=== PATIENT | male | born 1940 | race Caucasian/White ===

== ENCOUNTER 2022-11-12 11:42 | Outpatient (CLI) | payer MEDICARE, BC, SELFPAY | END 2022-11-12 11:43 | disposition home or self-care (01) | PROVIDERS: PCP Family Medicine; Visit Provider Nurse Practitioner Family | DX: R68.89 Other general symptoms and signs (principal); R05.9 Cough, unspecified | CPT/HCPCS: 83880; 84484; 85379 ==

== ENCOUNTER 2023-01-28 22:01 | Emergency (ER) | payer MEDICARE, BC, SELFPAY ==
[2023-01-28] VITALS (11 sets, daily range): BP systolic 115–157; BP diastolic 48–62; PULSE 42–48; RESP 22; TEMP 37; O2SAT 96–97; BMI 42.8
--- NOTE | 2023-01-28 22:33 | CRLHL7_ITS ---
For Patients: As a result of the Cures Act, medical imaging exams and procedure reports are released immediately into your electronic medical record. You may view this report before your referring provider. If you have questions, please contact your health care provider. INDICATION: Shortness of breath. COMPARISON: Chest single view from 11/12/2022 FINDINGS: PA and lateral views of the chest were obtained. The lungs remain clear. No focal or diffuse infiltrates are present. The heart remains normal in size. The mediastinum is normal in appearance. The osseous structures are normal in appearance for the patient`s age. IMPRESSION: Normal chest two views. Dictated by Stalney Rodríguez MD @ 01/29/2023 1:22:49 AM (Electronically Signed)
--- NOTE | 2023-01-28 22:41 | ED_ITS ---
HPI - General Adult General Date Seen: 01/28/23 Chief complaint: Arrhythmia/Palpitations Stated complaint: low heart rate Time Seen by Provider: 01/28/23 22:24 Source: patient Mode of arrival: ambulatory Limitations: no limitations History of Present Illness HPI narrative: Patient is a an 82-year-old male with history of hypertension, CHF, diabetes presenting to the emergency department for a low heart rate. He states over the past week his chronic fatigue and intermittent lightheadedness and dizziness seemed to have been worse. Patient states he never felt like he was going to pass out or fall over but was saved be slightly dizzy. He the nose with past week he is also having shortness of breath. He states usually he is able to walk around it never gets short of breath but now he walks but 100 or so feet and becomes short of breath. His eyes checked his blood pressure today and was blood pressure was normal he knows his heart rate was in the 40s. He is usually in the 80s. He has never had this issue before. Denies headache, chest pain, fevers, chills, abdominal pain, weakness, numbness, diarrhea, constipation. Related Data Home Medications Medication Instructions Recorded Confirmed atorvastatin 40 mg tablet 40 mg PO DAILY 11/12/22 01/28/23 furosemide 40 mg tablet 40 mg PO 3XD 11/12/22 01/28/23 glipizide 5 mg tablet, extended 5 mg PO BID 11/12/22 01/28/23 release 24 hr lisinopril 20 mg tablet 20 mg PO DAILY 11/12/22 01/28/23 tamsulosin 0.4 mg capsule 0.8 mg PO DAILY 11/12/22 01/28/23 ascorbate calcium (vitamin C) 500 500 mg PO DAILY 01/28/23 01/28/23 mg tablet ferrous sulfate 325 mg (65 mg 325 mg PO DAILY 01/28/23 01/28/23 iron) tablet omega 6-mtk-pmk-fish oil 1,000 mg 1 cap PO DAILY 01/28/23 01/28/23 (120 mg-180 mg) capsule (Fish Oil) Previous Rx's Medication Instructions Recorded albuterol sulfate 90 mcg/actuation 2 puff inhalation Q4-6H PRN 11/12/22 aerosol inhaler shortness of breath or wheezing #8.5 grams Allergies Allergy/AdvReac Type Severity Reaction Status Date / Time nifedipine Allergy Unknown Unknown Verified 01/28/23 23:41 Review of Systems Status of ROS: Reports: 10 or more systems reviewed and unremarkable except as noted in History and below 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 ?N18.30 - Chronic kidney disease, stage 3 unspecified (ICD-10) ?D63.1 - Anemia in chronic kidney disease (ICD-10) Prostate cancer ?C61 - Malignant neoplasm of prostate (ICD-10) Neuropathy ?G62.9 - Polyneuropathy, unspecified (ICD-10) Edema ?R60.9 - Edema, unspecified (ICD-10) Diabetes mellitus, without long-term current use of insulin ?E11.9 - Type 2 diabetes mellitus without complications (ICD-10) Bladder outlet obstruction ?N32.0 - Bladder-neck obstruction (ICD-10) Benign neoplasm of colon ?D12.6 - Benign neoplasm of colon, unspecified (ICD-10) Bronchospasm ?J98.01 - Acute bronchospasm (ICD-10) Decreased exercise tolerance ?R68.89 - Other general symptoms and signs (ICD-10) Cough ?R05.9 - Cough, unspecified (ICD-10) Social History Smoking Status: Former smoker Do you use any of these nicotine containing products: None Second hand tobacco smoke exposure: No Non-prescribed substance use: denies use Exam Narrative: Exam Narrative: Const: Well-nourished, Well-developed, in mild distress Eyes: PERRL, no conjunctival injection, and symmetrical lids ENMT: Atraumatic external nose and ears. Moist mucous membranes. Neck: Symmetric, trachea midline, No thyromegaly. CVS: RRR, No murmurs or gallops. Peripheral pulses 2+ and equal in all extremities RESP: Unlabored respiratory effort. Clear to auscultation bilaterally. GI: Nontender/Nondistended, No rebound or guarding. MSK:Extremities w/o deformity, Normal Active ROM Skin: Warm, Dry. No rashes or lesions. Neuro: Normal Muscle tone, No focal neurological deficits. Psych: Awake, Alert, & Oriented x3. Appropriate mood and affect. Const: Vital Signs, click to edit/add: Vital Signs - 24 hr 01/28/23 22:15 01/28/23 23:04 01/28/23 23:05 Temperature 98.6 F Pulse Rate 43 L 43 L Pulse Rate [Right Pulse Oximeter] 48 L Pulse Rate [orthos tatic lying Right Pulse Oximeter] Pulse Rate [orthos tatic sitting Righ t Pulse Oximeter] Pulse Rate [orthos tatic standing Rig ht Pulse Oximeter] Respiratory Rate 22 Blood Pressure 118/48 L Blood Pressure [Le ft Upper Arm] 141/58 H Blood Pressure [or thostatic lying Le ft Arm] Blood Pressure [or thostatic sitting Left Arm] Blood Pressure [or thostatic standing Left Arm] Pulse Oximetry 96 96 97 Oxygen Delivery Me thod Room Air 01/28/23 23:23 01/28/23 23:30 01/28/23 23:31 Temperature Pulse Rate 46 L 42 L Pulse Rate [Right Pulse Oximeter] Pulse Rate [orthos tatic lying Right Pulse Oximeter] 42 L Pulse Rate [orthos tatic sitting Righ t Pulse Oximeter] Pulse Rate [orthos tatic standing Rig ht Pulse Oximeter] Respiratory Rate Blood Pressure Blood Pressure [Le ft Upper Arm] Blood Pressure [or thostatic lying Le ft Arm] 115/56 L Blood Pressure [or thostatic sitting Left Arm] Blood Pressure [or thostatic standing Left Arm] Pulse Oximetry 97 97 Oxygen Delivery Me thod 01/28/23 23:32 01/28/23 23:33 01/28/23 23:34 Temperature Pulse Rate 42 L 45 L Pulse Rate [Right Pulse Oximeter] Pulse Rate [orthos tatic lying Right Pulse Oximeter] Pulse Rate [orthos tatic sitting Righ t Pulse Oximeter] 43 L Pulse Rate [orthos tatic standing Rig ht Pulse Oximeter] Respiratory Rate Blood Pressure 115/56 L 135/58 L Blood Pressure [Le ft Upper Arm] Blood Pressure [or thostatic lying Le ft Arm] Blood Pressure [or thostatic sitting Left Arm] 135/58 L Blood Pressure [or thostatic standing Left Arm] Pulse Oximetry 97 97 Oxygen Delivery Me thod 01/28/23 23:35 01/28/23 23:36 Temperature Pulse Rate 47 L Pulse Rate [Right Pulse Oximeter] Pulse Rate [orthos tatic lying Right Pulse Oximeter] Pulse Rate [orthos tatic sitting Righ t Pulse Oximeter] Pulse Rate [orthos tatic standing Rig ht Pulse Oximeter] 48 L Respiratory Rate Blood Pressure 157/62 H Blood Pressure [Le ft Upper Arm] Blood Pressure [or thostatic lying Le ft Arm] Blood Pressure [or thostatic sitting Left Arm] Blood Pressure [or thostatic standing Left Arm] 157/62 H Pulse Oximetry 97 Oxygen Delivery Me thod Course Vital Signs Vital signs: Initial Vital Signs Temperature 98.6 F 01/28/23 22:15 Temperature Source Temporal Artery Scan 01/28/23 22:15 Pulse Rate 48 L 01/28/23 22:15 Pulse Rhythm Regular 01/28/23 22:15 Respiratory Rate 22 01/28/23 22:15 Blood Pressure 141/58 H 01/28/23 22:15 Blood Pressure Mean 85 01/28/23 22:15 Blood Pressure Position Semi-Fowlers 01/28/23 22:15 Pulse Oximetry 96 01/28/23 22:15 Oxygen Delivery Method Room Air 01/28/23 22:15 Vital Signs Temperature 98.6 F 01/28/23 22:15 Pulse Rate 48 L 01/28/23 22:15 Respiratory Rate 22 01/28/23 22:15 Blood Pressure 141/58 H 01/28/23 22:15 Pulse Oximetry 96 01/28/23 22:15 Oxygen Delivery Method Room Air 01/28/23 22:15 Temperature 98.6 F 01/28/23 22:15 Pulse Rate 47 L 01/28/23 23:36 Respiratory Rate 22 01/28/23 22:15 Blood Pressure 157/62 H 01/28/23 23:36 Pulse Oximetry 97 01/28/23 23:36 Oxygen Delivery Method Room Air 01/28/23 22:15 Medical Decision Making MDM Narrative Medical decision making narrative: Patient is an 82-year-old male presented emergency department for bradycardia and shortness of breath. First noticed the bradycardia today and thus making emergency department. He has had a his shortness of breath for the past week agree states now every he walks more than feet surgical breath previously he could walk around on limited without being short of breath. He has also been having some increased lightheadedness and dizziness but does note is been a chronic issue the just seems mildly worse now. He has chronic lower extremity swelling. CBC, CMP, troponin, EKG, chest x-ray, magnesium, BNP all ordered. We also ordered a D-dimer for concern of a PE. Patient's D-dimer was elevated. Orthostatic blood pressure shoulder rising blood pressure. With elevated D-dimer we will order a PE CTA scan. Patient's EKG showed a slower heart rate but otherwise was not concerning. Cbc and CMP showed no concerning abnormalities. Scratch that appears to be at baseline. COVID/flu/RSV were negative. Troponin was within normal limits. Patient is pending CT results and was signed out to my colleague Dr. Guzmán for final disposition. Lab Data Labs: Lab Results 01/28/23 01/28/23 Range/Units 22:25 23:11 WBC 6.41 (4.50-11.00) K/uL RBC 4.52 (4.30-5.90) m/uL Hgb 13.2 L (13.5-17.5) gm/dL Hct 42.7 (37.0-53.0) % MCV 95 (80-100) fL MCH 29 (26-34) pg MCHC 31 L (32-36) gm/dL RDW Coeff of Blu 13.7 (11.5-15.5) % Plt Count 196 (140-440) K/uL Neut % (Auto) 57.5 (42.0-72.0) % Lymph % (Auto) 25.4 (20-44) % [place] % (Auto) 13.6 H (0.0-11.0) % Eos % (Auto) 2.2 (0.0-7.0) % Baso % (Auto) 0.5 (0.0-3.0) % Neut # (Auto) 3.69 (1.7-7.0) K/uL Lymph # (Auto) 1.63 (0.90-2.90) K/uL [place] # (Auto) 0.90 (0.00-0.90) K/UL Eos # (Auto) 0.14 (0.00-0.50) K/uL Baso # (Auto) 0.03 (0.00-0.30) K/uL Abs Immat Gran (auto) 0.05 (0.00-0.30) K/uL Imm/Tot Granulo (auto) 0.8 % D-Dimer Quant (PE/DVT) 1.05 H (0.00-0.50) ug/ml Sodium 136 (135-149) mmol/L Potassium 3.9 (3.6-5.1) mmol/L Chloride 98 (96-114) mmol/L Carbon Dioxide 27 (20-32) mmol/L BUN 56 H (7-30) mg/dL Creatinine 1.8 H (0.5-1.5) mg/dL Estimated Creat Clear 33.80 Estimated GFR 38 ml/min Glucose 144 H (60-115) mg/dL Calcium 8.6 (8.4-10.6) mg/dL Magnesium 2.7 H (1.5-2.6) mg/dL Total Bilirubin 0.5 (0.1-1.5) mg/dL AST 21 (12-35) U/L ALT 26 (4-50) U/L Alkaline Phosphatase 77 (40-150) U/L Total Protein 6.7 (6.0-8.3) g/dL Albumin 3.9 (3.3-5.0) g/dL SARS-CoV-2 (PCR) Negative SARS-CoV-2 (Negative) Influenza Type A (PCR) Negative PCR FLU A (Negative) Influenza Type B (PCR) Negative PCR FLU B (Negative) RSV (PCR) Negative PCR RSV (Negative) Lab Acknowledgement Test Added POC Troponin I 0.01 (0.01-0.04) ng/ml ECG Data Attestation: I personally reviewed and interpreted this ECG as follows: (EKG shows sinus bradycardia with first-degree AV block at 50 beats per minute, right axis, resting intervals appear normal, no ST or T-wave abnormalities. Appears similar to previous EKG other than the slower heart rate) Prior ECG tracings: available for review (11/13/2022) Discharge Plan Discharge Prescriptions: No Action atorvastatin 40 mg tablet 40 mg PO DAILY furosemide 40 mg tablet 40 mg PO 3XD lisinopril 20 mg tablet 20 mg PO DAILY glipizide 5 mg tablet extended release 24hr 5 mg PO BID tamsulosin 0.4 mg capsule 0.8 mg PO DAILY albuterol sulfate 90 mcg/actuation HFA aerosol inhaler 2 puff inhalation Q4-6H PRN (Reason: shortness of breath or wheezing) Qty: 8.5 0RF omega 0-nlm-hfg-fish oil [Fish Oil] 1,000 mg (120 mg-180 mg) capsule 1 cap PO DAILY ferrous sulfate 325 mg (65 mg iron) tablet 325 mg PO DAILY ascorbate calcium (vitamin C) 500 mg tablet 500 mg PO DAILY Follow Up/Referrals: Clark Tolentino MD [Primary Care Provider] -
[2023-01-28 22:51] LABS: Troponin, Point-of-Care* 0.01 ng/ml (0.01-0.04)
[2023-01-28 22:55] LABS: Basophils Absolute Auto 0.03 K/uL (0.00-0.30); Basophils Percent Auto 0.5 % (0.0-3.0); Eosinophils Absolute Auto 0.14 K/uL (0.00-0.50); Eosinophils Percent Auto 2.2 % (0.0-7.0); Hematocrit 42.7 % (37.0-53.0); Hemoglobin* 13.2 gm/dL (13.5-17.5); Immature Granulocytes Abs Auto 0.05 K/uL (0.00-0.30); Immature Granulocytes Pct Auto 0.8 %; Lymphocytes Absolute Auto 1.63 K/uL (0.90-2.90); Lymphocytes Percent Auto 25.4 % (20-44); Mean Corpuscular HGB Conc 31 gm/dL (32-36); Mean Corpuscular Hemoglobin 29 pg (26-34); Mean Corpuscular Volume 95 fL (80-100); Monocytes Percent Auto 13.6 % (0.0-11.0); Neutrophils Absolute Auto 3.69 K/uL (1.7-7.0); Neutrophils Percent Auto 57.5 % (42.0-72.0); Platelet Count* 196 K/uL (140-440); RDW Coefficient of Variation % 13.7 % (11.5-15.5); Red Blood Count 4.52 m/uL (4.30-5.90); White Blood Count* 6.41 K/uL (4.50-11.00)
[2023-01-28 22:57] LABS: Slide Review Reflex No
[2023-01-28 23:03] LABS: Albumin* 3.9 g/dL (3.3-5.0); Chloride* 98 mmol/L (96-114); Sodium* 136 mmol/L (135-149)
[2023-01-28 23:04] LABS: Potassium* 3.9 mmol/L (3.6-5.1)
[2023-01-28 23:06] LABS: Alanine Aminotransferase* 26 U/L (4-50); Alkaline Phosphatase* 77 U/L (40-150); Aspartate Amino Transferase* 21 U/L (12-35); Bilirubin Total* 0.5 mg/dL (0.1-1.5); Blood Urea Nitrogen* 56 mg/dL (7-30); Carbon Dioxide* 27 mmol/L (20-32); Creatinine* 1.8 mg/dL (0.5-1.5); Estimated Glomerular Filt Rate 38 ml/min; Glucose* 144 mg/dL (60-115); Total Protein* 6.7 g/dL (6.0-8.3)
[2023-01-28 23:07] LABS: Calcium* 8.6 mg/dL (8.4-10.6)
[2023-01-28 23:13] LABS: D Dimer Quantitative* 1.05 ug/ml (0.00-0.50)
--- NOTE | 2023-01-28 23:20 | CRLHL7_ITS ---
For Patients: As a result of the Century Cures Act, medical imaging exams and procedure reports are released immediately into your electronic medical record. You may view this report before your referring provider. If you have questions, please contact your health care provider. INDICATION: Shortness of breath. TECHNIQUE: CT chest PE was acquired with 100 cc Omnipaque 350 IV contrast. Permanently recorded images are archived. COMPARISON: None. FINDINGS: Heart and vasculature: Contrast opacification of the pulmonary arterial tree is adequate. No sign of pulmonary embolism. Heart size is normal. Thoracic aorta and pulmonary artery are normal in caliber. Coronary artery and thoracic aorta atherosclerotic calcification. Heavy mitral annulus calcification. Lungs and pleura: Small band of scarring result cases in the inferior posterior lingula. The lungs are otherwise clear. No suspicious nodule. No pleural effusions or pneumothorax. Lymph nodes/mediastinum: Calcified left hilar and mediastinal lymph nodes. No adenopathy or mass. Chest wall: No masses. Thyroid: Unremarkable. Upper abdomen: Partially imaged left-sided hydronephrosis. Bones: Unremarkable for age. IMPRESSION: No pulmonary embolism. No acute findings within the chest. Partially imaged left-sided hydronephrosis. Recommend CT of the abdomen for further evaluation. Please note that all CT scans at this facility use dose modulation, iterative reconstruction, and/or weight-based dosing when appropriate to reduce radiation dose to as low as reasonably achievable. Dictated by Rajeev Mccarthy MD @ 01/29/2023 1:57:40 AM (Electronically Signed)
[2023-01-28 23:27] LABS: Magnesium* 2.7 mg/dL (1.5-2.6)
[2023-01-28 23:29] LABS: PCR FLU A Negative PCR FLU A (Negative); PCR FLU B Negative PCR FLU B (Negative); PCR RSV Negative PCR RSV (Negative)
[2023-01-28] MEDS: LACTATED RINGERS 1000 ML 1,000 ML IV (23:50)
[2023-01-28 23:51] LABS: SARS PCR* Negative SARS-CoV-2 (Negative)
[2023-01-29] VITALS (44 sets, daily range): BP systolic 101–132; BP diastolic 43–61; PULSE 33–54; RESP 20; TEMP 36.2; O2SAT 93–98
[2023-01-29 04:01] LABS: NT Pro B Type NatriureticPept* 2230 pg/mL
--- NOTE | 2023-01-29 08:18 | ED.NURSE ---
at ; she is wanting to ride in ambulance. [place]. pacer pads placed. was incont of urine and pads changed,
--- NOTE | 2023-01-29 08:35 | ED.NURSE ---
bed placement called back-report was called to Radha at [facility]. dispatch called. will be going to [id number].
== END 2023-01-29 09:00 | disposition short-term general hospital (02) ==
PROVIDERS: Emergency Provider Student in an Organized Health Care Education/Training Program; PCP Family Medicine
DX: I44.1 Atrioventricular block, second degree (principal)
CPT/HCPCS: 36415; 71046; 71260; 80053; 83735; 83880; 84484; 85025; 85379; 87631; 93005; 99283; 99284; 99285; J7120; Q9967

== ENCOUNTER 2023-01-29 08:49 | Outpatient (CLI) | payer MEDICARE, BC, SELFPAY | END 2023-01-29 08:50 | disposition home or self-care (01) | LOC: AMB 01-30 12:58 | PROVIDERS: PCP Family Medicine; Visit Provider Family Medicine | DX: I49.9 Cardiac arrhythmia, unspecified (principal) | CPT/HCPCS: A0425; A0427; A0428 ==

== ENCOUNTER 2024-01-30 14:00 | Outpatient (RCR) | payer MEDICARE, BC, SELFPAY ==
--- NOTE | 2023-07-31 14:17 | URNOTE ---
Prior auth is not required for Degarelix ([id number]). Pt has Medicare. Services are based on medical necessity and follow medicare guidelines.
--- NOTE | 2023-08-02 12:20 | PC.NURSE ---
Diagnosis: Prostate Cancer
[2023-08-03 13:17] VITALS: BP 114/74; PULSE 88; RESP 16; TEMP 36.4; O2SAT 97
[2023-08-31 11:36] VITALS: BP 143/83; PULSE 90; RESP 19; TEMP 36.4; O2SAT 96
[2023-08-31] MEDS: DEGARELIX ACETATE 80 MG INJ SUBCUT (11:57)
--- NOTE | 2023-09-12 10:13 | ONC.NURNOTE ---
Dx: Prostate cancer
--- NOTE | 2023-09-12 10:24 | URNOTE ---
Request received for authorization for Le[facility]rol[facility] Acet[facility] (J9217). Prior authorization is not required as services are based on medical necessity and follow Medicare guidelines.
[2023-09-28 11:25] VITALS: BP 121/69; PULSE 100; RESP 18; TEMP 36.8; O2SAT 92
[2023-09-28] MEDS: LEUPROLIDE ACETATE 7.5 MG (SQ) SYRINGE SUBCUT (11:33)
--- NOTE | 2023-10-26 12:57 | URNOTE ---
Request received for authorization for Leuprolide Acetate (Eligard)monthly (J9217). Prior authorization is not required as services are based on medical necessity and follow Medicare guidelines.
[2023-11-01] MEDS: LEUPROLIDE ACETATE 7.5 MG (SQ) SYRINGE SUBCUT (14:46)
[2023-11-29 13:51] VITALS: BP 101/74; PULSE 90; RESP 18; TEMP 35.9; O2SAT 93
[2023-11-29] MEDS: LEUPROLIDE ACETATE 7.5 MG (SQ) SYRINGE SUBCUT (14:09)
[2023-12-27 11:10] VITALS: BP 144/78; PULSE 83; RESP 16; TEMP 36.3; O2SAT 93
[2023-12-27] MEDS: LEUPROLIDE ACETATE 7.5 MG (SQ) SYRINGE SUBCUT (11:19)
--- NOTE | 2024-01-24 10:04 | ONC.NURNOTE ---
Patient called to say he tested positive to covid. states he is asymptomatic. denies temp. states has covid. He will call sunday to let us know how he feels to reschedule his eligard.
== END 2024-01-30 23:59 | disposition home or self-care (01) ==
LOC: CCIC 14:00
PROVIDERS: PCP Family Medicine; Referring Provider Family Medicine; Visit Provider Internal Medicine Hematology & Oncology
DX: C61 Malignant neoplasm of prostate (principal)
CPT/HCPCS: 96401; 99202; 99204; J9155; J9217

== ENCOUNTER 2024-07-24 11:45 | Outpatient (RCR) | payer MEDICARE, BC, SELFPAY ==
[2024-02-04 11:30] LABS: PSA Diagnostic* 0.16 ng/mL (0.10-4.00)
[2024-02-05] MEDS: LEUPROLIDE ACETATE 7.5 MG (SQ) SYRINGE SUBCUT (14:19)
[2024-03-04] MEDS: LEUPROLIDE ACETATE 7.5 MG (SQ) SYRINGE SUBCUT (11:49)
[2024-04-01 11:46] VITALS: BP 105/62; PULSE 88; RESP 16; TEMP 36.4; O2SAT 92
[2024-04-01] MEDS: LEUPROLIDE ACETATE 7.5 MG (SQ) SYRINGE SUBCUT (11:50)
[2024-04-29 12:01] LABS: PSA Diagnostic* < 0.06 ng/mL (0.10-4.00)
[2024-04-30] MEDS: LEUPROLIDE ACETATE 7.5 MG (SQ) SYRINGE SUBCUT (10:57)
[2024-05-28 11:00] VITALS: BP 123/72; PULSE 90; RESP 20; TEMP 36.6; O2SAT 98
--- NOTE | 2024-05-28 11:48 | PC.NURSE ---
malfunction of syringe. pt not given eligard today. he will return tomorrow
[2024-05-29] MEDS: LEUPROLIDE ACETATE 7.5 MG (SQ) SYRINGE SUBCUT (12:24)
[2024-05-29 12:30] VITALS: BP 114/65; PULSE 80; RESP 16; TEMP 36.5; O2SAT 93
[2024-06-25 11:17] VITALS: BP 104/69; PULSE 95; RESP 16; TEMP 35.9; O2SAT 98
[2024-06-25] MEDS: LEUPROLIDE ACETATE 7.5 MG (SQ) SYRINGE SUBCUT (11:53)
[2024-07-23 12:58] LABS: PSA Diagnostic* < 0.06 ng/mL (0.10-4.00)
[2024-07-24] MEDS: LEUPROLIDE ACETATE 7.5 MG (SQ) SYRINGE SUBCUT (11:50)
== END 2024-08-02 23:59 | disposition home or self-care (01) ==
LOC: CCIC 11:45
PROVIDERS: Internal Medicine Hematology & Oncology; PCP Family Medicine; Referring Provider Family Medicine; Visit Provider Physician Assistant
DX: C61 Malignant neoplasm of prostate (principal)
CPT/HCPCS: 36415; 84153; 96401; 96402; 99214; 99215; G0463; J9217

== ENCOUNTER 2024-11-06 11:44 | Outpatient (CLI) | payer MEDICARE, BC, SELFPAY ==
[2024-11-06 12:34] LABS: Hemoglobin* 14.4 gm/dL (13.5-17.5)
[2024-11-06 12:49] LABS: Albumin* 4.3 g/dL (3.3-5.0); Chloride* 96 mmol/L (96-114); Sodium* 138 mmol/L (135-149)
[2024-11-06 12:52] LABS: Anion Gap 9 mEq/L (7-15); Blood Urea Nitrogen* 27 mg/dL (7-30); Calcium* 9.5 mg/dL (8.4-10.6); Carbon Dioxide* 33 mmol/L (20-32); Creatinine* 1.4 mg/dL (0.5-1.5); Estimated Glomerular Filt Rate 50 ml/min; Glucose* 144 mg/dL (60-115)
[2024-11-06 13:50] LABS: PTH Intact* 70.3 pg/mL (14.2-75.2)
== END 2024-11-06 11:45 | disposition home or self-care (01) ==
PROVIDERS: PCP Family Medicine; Visit Provider Internal Medicine Nephrology
DX: N18.31 Chronic kidney disease, stage 3a (principal)
CPT/HCPCS: 36415; 80069; 83970; 85018

== ENCOUNTER 2024-11-13 11:30 | Outpatient (RCR) | payer MEDICARE, BC, SELFPAY ==
[2024-08-21 11:43] VITALS: BP 118/78; PULSE 83; RESP 16; TEMP 35.9; O2SAT 97
[2024-08-21] MEDS: LEUPROLIDE ACETATE 7.5 MG (SQ) SYRINGE SUBCUT (12:08)
[2024-09-18 11:53] VITALS: BP 109/74; PULSE 79; RESP 16; TEMP 36.2; O2SAT 94
[2024-09-18] MEDS: LEUPROLIDE ACETATE 7.5 MG SUBCUT (12:25)
--- NOTE | 2024-10-08 15:20 | ONC.NURNOTE ---
Patient called today and requested to cancel his lab appt on 10/15. Patient reports he had his PSA checked at his Urologist appt. Advised patient to have results faxed to us or bring the results to his appt with the MD on 10/16. Patient verbalized understanding and agreeable to the plan.
[2024-10-16] MEDS: LEUPROLIDE ACETATE 7.5 MG SUBCUT (11:37)
[2024-11-13 11:58] VITALS: BP 138/82; PULSE 65; RESP 18; TEMP 36.4; O2SAT 97
[2024-11-13] MEDS: LEUPROLIDE ACETATE 7.5 MG SUBCUT (12:07)
--- NOTE | 2024-12-09 09:22 | ONC.NURNOTE ---
Pt called to cancel his injectin appointment. RN called to confirm and Chidi shared that he is currently in the ICU at [facility] because my heart tried to kill me. Support offered. Instructed pt to call when he is home and stable.
--- NOTE | 2024-12-11 08:59 | ONC.NURNOTE ---
Pt's daughter, Nneka, called today to let [facility] know that he will be going home with Hospice today. Per Nneka, his time is short and they are grateful that he will be able to be at home. Support offered. Will cancel all pt's [facility] appts and will update his team here.
== END 2024-12-12 23:59 | disposition home or self-care (01) ==
LOC: CCIC 11:30
PROVIDERS: PCP Family Medicine; Referring Provider Family Medicine; Visit Provider Internal Medicine Hematology & Oncology
DX: C61 Malignant neoplasm of prostate (principal); Z19.1 Hormone sensitive malignancy status
CPT/HCPCS: 96402; 99214; G0463; J9217

== ENCOUNTER 2024-12-03 14:02 | Emergency (ER) | payer MEDICARE, BC, SELFPAY ==
[2024-12-03] VITALS (8 sets, daily range): BP systolic 81–119; BP diastolic 57–68; PULSE 78–88; RESP 9–49; TEMP 36.6; O2SAT 94–98
--- OUTSIDE RECORDS SUMMARY | 2024-12-03 14:05 | XMS_ITS | Data Portability ---
Author Organization [facility], [facility] Address [address] [place] [address] Care Team Providers Care Repacker Name Role Phone ARIS SINGH Primary Care Provider [phone] Assessment No assessment recorded. Plan of Treatment Reminders Order Date Submit Date Provider Last Modified By Organization Details Last Modified Time Details Appointments None recorded. Lab urinalysis , dipstick 2024 025 ssamb [facility], [address], [place], [address], 5 10:21:44 PSA, serum or plasma 2024 025 ssamb [facility], [address], [place], [address], 5 10:30:18 culture, urine 2024 025 [facility], [address], [address], [place], [address], 5 11:51:37 PSA, serum or plasma 2022 023 [facility], [address], [place], [address], 3 15:29:43 PSA, total, serum or plasma 2022 023 [email or web address] 30 [facility], [address], [place], [address], 3 08:55:11 PSA, serum or plasma 2022 023 [facility], [address], [place], [address], 3 12:35:22 PSA, total, serum or plasma 2022 023 [email or web address] 30 [facility], [address], [place], [address], 3 14:00:46 Referral None recorded. Procedures None recorded. Surgeries None recorded. Imaging None recorded. Medication Orders None recorded. Patient TargetsNo targets recorded. Patient InstructionsNo instructions recorded. Reason for Referral None Reported. Results Created Date Observation Date Name Description Value Unit Range Abnormal Flag Note LastModifiedBy Organization Detail LastModifiedTime 07/26/1907/26/2022 PSA, serum or plasm a PSA 0.33ng /mL 0-4.0 Not Available [facility] [address], [place], [address], 07/26/2022 12:35:06 05/16/20 23 05/16/2023 PSA, serum or plasm a PSA 2.3ng/ ml 0-4.0 Not Available [facility] [address], [place], [address], 05/16/2023 15:29:24 10/09/19 25 10/08/2024 URINE CULTU RE final report MICROB IOLOGY RESULT S SOURC E Void KNOWN ALLER GIES jose nolac tone, nifed ipine TREAT MENT n/a MEDIA PLATE D AT: Media plate d on 025 @ 4:23 PM COLON Y COUNT >100, 000 cfu/m l RESUL T Mixed Growt h, Multi ple Morph ologi c Types , No Furth er Rebecca p This lab resul t is being provi ded to you and your provi rocio at the same time in compl iance with the Centu ry Cures Act. Your provi rocio may not have had time to revie w and make recom menda tions based on the resul tGeorge guido allow up to one week for provi rocio revie w. Not Available [facility] [address], [place], [address], 10/09/2024 11:51:37 10/09/19 25 10/08/2024 PSA, serum or plasm a PSA <0.04 ng/ml 0-4.0 NG/mL Not Available [facility] [address], [place], [address], 10/08/2024 10:17:31 10/09/19 25 10/08/2024 urina lysis , dipst ick BLOOD Large (250 RBC/uL ) Not Available [facility] [address], [place], [address], 10/08/2024 10:17:53 10/09/19 25 10/08/2024 urina lysis , dipst ick BILIRUBIN Negati ve Not Available [facility] [address], [place], [address], 10/08/2024 10:17:53 10/09/19 25 10/08/2024 urina lysis , dipst ick UROBILINOGEN 0.2 mg/dL (Norm) Not Available [facility] [address], [place], [address], 10/08/2024 10:17:53 10/09/19 25 10/08/2024 urina lysis , dipst ick KETONES Negati ve Not Available [facility] [address], [place], [address], 10/08/2024 10:17:53 10/09/19 25 10/08/2024 urina lysis , dipst ick PROTEIN 30 mg/dL Not Available [facility] [address], [place], [address], 10/08/2024 10:17:53 10/09/19 25 10/08/2024 urina lysis , dipst ick NITRITES Negati ve Not Available [facility] [address], [place], [address], 10/08/2024 10:17:53 10/09/19 25 10/08/2024 urina lysis , dipst ick GLUCOSE >2000 mg/dL Not Available [facility] [address], [place], [address], 10/08/2024 10:17:53 10/09/19 25 10/08/2024 urina lysis , dipst ick LEUKOCYTES Large (500 WBC/uL ) Not Available [facility] [address], [place], [address], 10/08/2024 10:17:53 07/27/19 23 07/26/2022 bladd er scan (PROC ) No observ ation record ed. BARCODE Not Available 2022 09:41:35 07/05/20 23 07/04/2023 PET-C T, skull base to mid-t high scan No observ ation record ed. Not Available 2023 11:45:47 10/14/19 25 10/13/2024 CT, abdom en + pelvi s, w/o contr ast No observ ation record ed. KINGSTON [facility] [address], [place], [address], 10/13/2024 14:41:22 Result Notes None recorded. Problems Name Problem SNOMED Code Status Onset Date Resolution Date Notes Provider Name and Address Organization Details Recorded Time Malignant neoplasm of prostate 846826084 Active 2019 C61 : Malignant neoplasm of prostate - Notes:Pros sellers cancer - T1c - Roann 4+3 = 7 (dx )- PSA - 15.30 Not Available [facility] 0 02:05:22 Problem Notes None recorded. Procedures Surgical History Date Name Laterality Status Provider Name and Address Organization Details Recorded Time 5 Bladder Scan completed Armani Luu [facility] 10/08/2024 10:17:19 5 Blood Draw/STAGE PRODUCER/PSA RESULTS completed Armani Luu [facility] 10/08/2024 10:17:25 3 STAGE PRODUCER/blood draw completed Madi Oakley MD [address] [place] [address], [address] [place] [address], [facility] 05/16/2023 15:29:17 3 STAGE PRODUCER/blood draw completed Madi Oakley MD [address] [place] [address], [address] [place] [address], [facility] 07/26/2022 12:34:55 3 Bladder Scan completed Madi Oakley MD [address] [place] [address], [address] [place] [address], [facility] 07/26/2022 12:35:00 Imaging Results None recorded. Procedure Notes None recorded. Medical Equipment None Reported. Allergies Allergen ID Allergen Name Allergen Category Reaction Reaction Severity Criticality Documentation Date Start Date Code Code System Note Provider Name and Address Organization Details Recorded Time 403571 nifedipin e medicatio n Not available Not available Not available 12/25/20192019 7417 RxNorm Not Available [facility] 0 00:46:56 641594 spironola ctone medicatio n Not available Not available Not available 12/25/20192019 9997 RxNorm Not Available [facility] 0 00:46:56 Medications Name Sig Start Date Stop Date Status Note LastModified by Organization Details LastModified Time furosemide 40 mg tablet TAKE 3 TABLETS BY MOUTH EVERY MORNING active Not Available Not Available No t Available atorvastati n 40 mg tablet TAKE 1 TABLET BY MOUTH EVERY DAY active Not Available Not Available No t Available labetalol 200 mg tablet TAKE ONE TABLET BY MOUTH TWICE DAILY 07/26 completed Not Available Not Available Not Available benzonatate 200 mg capsule active Not Available Not Available Not Available glipizide ER 10 mg tablet, extended release 24 hr 10/08 completed Not Available Not Available Not Available lisinopril 20 mg tablet TAKE 2 TABLETS BY MOUTH DAILY active Not Available Not Available No t Available prednisone 20 mg tablet TAKE 1 TABLET BY MOUTH TWICE DAILY FOR 5 DAYS 10/08 completed Not Available Not Available Not Available glipizide ER 5 mg tablet, extended release 24 hr active Not Available Not Available Not Available ondansetron 8 mg disintegrat ing tablet DISSOLVE 1 TABLET BY MOUTH EVERY 8 HOURS NEEDED FOR NAUSEA OR VOMITING active Not Available Not Available No t Available tamsulosin 0.4 mg capsule TAKE 2 CAPSULES BY MOUTH EVERY DAY active Not Available Not Available No t Available cephalexin 500 mg capsule 05/16 completed Not Available Not Available Not Available gabapentin 300 mg capsule TAKE 1 CAPSULE (300 MG) BY MOUTH AT BEDTIME. active Not Available Not Available No t Available albuterol sulfate HFA 90 mcg/actuati on aerosol inhaler INHALE 1 TO 2 PUFFS BY MOUTH EVERY 6 HOURS NEEDED FOR SHORTNESS OF BREATH active Not Available Not Available No t Available Jardiance 10 mg tablet TAKE 1 TABLET BY MOUTH 1 TIME EACH DAY IN THE MORNING active Not Available Not Available No t Available Mounjaro 5 mg/0.5 mL subcutaneou s pen injector ADMINISTE R 5 MG UNDER THE SKIN 1 TIME WEEKLY 10/08 completed Not Available Not Available Not Available Mounjaro 15 mg/0.5 mL subcutaneou s pen injector ADMINISTE R 15 MG UNDER THE SKIN 1 TIME WEEKLY active Not Available Not Available No t Available Mounjaro 10 mg/0.5 mL subcutaneou s pen injector ADMINISTE R 10 MG UNDER THE SKIN 1 TIME WEEKLY 10/08 completed Not Available Not Available Not Available Mounjaro 12.5 mg/0.5 mL subcutaneou s pen injector ADMINISTE R 12.5 MG UNDER THE SKIN 1 TIME WEEKLY 10/08 completed Not Available Not Available Not Available Mounjaro 2.5 mg/0.5 mL subcutaneou s pen injector ADMINISTE R 2.5 MG UNDER THE SKIN 1 TIME WEEKLY 10/08 completed Not Available Not Available Not Available Vitals Date Recorded Body weight Body mass index (BMI) Body height Provider Name and Address Organization Details Last Updated DateTime 07/26/2022 886142.6 g 41.3 kg/m2 177.8 cm Madi Oakley MD [address] [place] [address],[address] [place] [address] [facility] 07/26/2022 12:32:49 Date Recorded Body height Body mass index (BMI) Body weight Provider Name and Address Organization Details Last Updated DateTime 10/08/2024 177.8 cm 39.9 kg/m2 859377.68 g Armani Luu [facility] 10/08/2024 10:16:10 Date Recorded Body height Body mass index (BMI) Body weight Provider Name and Address Organization Details Last Updated DateTime 05/16/2023 177.8 cm 43 kg/m2 035350.71 g Madi Oakley MD [address] [place] [address],[address] [facility] 05/16/2023 15:28:14 Social History Question Answer Notes LastModified by [employer] Details LastModified Time Tobacco Smoking Status Former Smoker Madi Oakley MD [address] [place] [address] [facility] 07/26/2022 12:33:48 What Is Your Level Of Caffeine Consumption? Moderate Information not available 07/26/2022 When Did You Quit Smoking? 16+yearssincel astcigarette Information not available 07/26/2022 What Was The Date Of Your Most Recent Tobacco Screening? 10/08/2024 ssamb Information not available 10/08/2024 Sex: Unknown Functional Status Question Answer Note LastModified by [employer] Details LastModified Time Do you use any illicit or recreational drugs? No Information not available 07/26/2022 Do you or have you ever used any other forms of tobacco or nicotine? No Information not available 07/26/2022 What is your level of alcohol consumption? Moderate Information not available 07/26/2022 Mental Status None recorded. Family History Nothing Reported. Medical History Condition Response High Blood Pressure Y Cancer Y High Cholesterol Y Diabetes Y Immunizations Vaccine Type Date Status Note Provider Nam e and Address Organization Details Recorded Time Pneumococcal conjugate PCV20, polysaccharide XIA115 conjugate, adjuvant, PF 4 completed Not Available [facility] 10/08/2024 10:02:42 Influenza, high-dose, trivalent, PF 4 completed Not Available [facility] 10/08/2024 10:02:42 COVID-19, mRNA, LNP-S, PF, 50 mcg/0.5 mL 4 completed Not Available [facility] 10/08/2024 10:02:42 Pneumococcal conjugate PCV 13 4 completed Madi Oakley MD [address] [place] [address],[address], [place], [address], [facility] 07/26/2022 12:33:03 pneumococcal polysaccharide PPV23 1 completed Madi Oakley MD [address] [place] [address],[address], [address], [facility] 07/26/2022 12:33:03 pneumococcal polysaccharide PPV23 7 completed Madi Oakley MD [address] [place] [address],[facility] [address], [place], [address], [facility] 07/26/2022 12:33:03 Influenza, adjuvanted, trivalent, PF 9 completed Madi Oakley MD [address] [place] [address],[address], [place], [address], [facility] 05/16/2023 15:28:18 zoster recombinant 9 completed Madi Oakley MD [address] [place] [address],[address], [place], [address], [facility] 05/16/2023 15:28:19 zoster recombinant 9 completed Madi Oakley MD [address] [place] [address],[address], [place], [address], [facility] 05/16/2023 15:28:19 Influenza, high-dose, quadrivalent, PF 2 completed Madi Oakley MD [address] [place] [address],[address], [address], [facility] 05/16/2023 15:28:19 Influenza, adjuvanted, quadrivalent, PF 3 completed Madi Oakley MD [address] [place] [address],[address], [address], [facility] 05/16/2023 15:28:19 Influenza, adjuvanted, quadrivalent, PF 0 completed Madi Oakley MD [address] [place] [address],[address], [place], [address], [facility] 05/16/2023 15:28:19 Influenza, adjuvanted, quadrivalent, PF 1 completed Madi Oakley MD [address] [place] [address],[facility] [address], [place], [address], [facility] 05/16/2023 15:28:19 COVID-19, mRNA, LNP-S, PF, 30 mcg/0.3 mL dose 1 completed Madi Oakley MD [address] [place] [address],[address], [address], [facility] 05/16/2023 15:28:19 COVID-19, mRNA, LNP-S, PF, 30 mcg/0.3 mL dose 1 completed Madi Oakley MD [address] [place] [address],[address], [place], [address], [facility] 05/16/2023 15:28:19 COVID-19, mRNA, LNP-S, PF, 30 mcg/0.3 mL dose 1 completed Madi Oakley MD [address] [place] [address],[address], [address], [facility] 05/16/2023 15:28:19 COVID-19, mRNA, LNP-S, PF, 30 mcg/0.3 mL dose, daniel-sucrose 2 completed Madi Oakley MD [address] [place] [address],[address], [address], [facility] 05/16/2023 15:28:19 COVID-19, mRNA, LNP-S, bivalent, PF, 50 mcg/0.5 mL or 25mcg/0.25 mL dose 3 completed Madi Oakley MD [address] [place] [address],[address], [address], [facility] 05/16/2023 15:28:19 COVID-19, mRNA, LNP-S, bivalent, PF, 30 mcg/0.3 mL dose 2 completed Madi Oakley MD [address] [place] [address],[address], [place], [address], [facility] 05/16/2023 15:28:19 RSV, bivalent, protein subunit RSVpreF, diluent reconstituted, 0.5 mL, PF 3 completed Madi Oakley MD [address] [place] [address],[address], [place], [address], [facility] 05/16/2023 15:28:19 Tdap 1 completed Madi Oakley MD [address] [place] [address],[address], [address], [facility] 05/16/2023 15:28:19 zoster live 7 completed Madi Oakley MD [address] [place] [address],[address], [address], [facility] 05/16/2023 15:28:19 Influenza, high-dose, trivalent, PF 4 completed Madi Oakley MD [address] [place] [address],[address], [place], [address], [facility] 05/16/2023 15:28:19 Influenza, high-dose, trivalent, PF 7 completed Madi Oakley MD [address] [place] [address],[address], [address], [facility] 05/16/2023 15:28:19 Influenza, high-dose, trivalent, PF 8 completed Madi Oalkey MD [address] [place] [address],[address], [address], [facility] 05/16/2023 15:28:19 Influenza, high-dose, trivalent, PF 2 completed Madi Oakley MD [address] [place] [address],[address], [place], [address], [facility] 05/16/2023 15:28:19 Influenza, high-dose, trivalent, PF 6 completed Madi Oakley MD [address] [place] [address],[address], [address], [facility] 05/16/2023 15:28:19 Influenza, split virus, trivalent, preservative 7 completed Madi Oakley MD [address] [place] [address],[address], [address], [facility] 05/16/2023 15:28:19 Influenza, split virus, trivalent, preservative 0 completed Madi Oakley MD [address] [place] [address],[address], [address], [facility] 05/16/2023 15:28:19 Influenza, split virus, trivalent, preservative 3 completed Madi Oakley MD [address] [place] [address],[address], [address], [facility] 05/16/2023 15:28:19 Influenza, split virus, trivalent, preservative 8 completed Madi Oakley MD [address] [place] [address],[address], [address], [facility] 05/16/2023 15:28:19 Influenza, split virus, trivalent, PF 1 completed Madi Oakley MD [address] [place] [address],[address], [address], [facility] 05/16/2023 15:28:19 Novel [id number] 9 completed Madi Oakley MD [address] [place] [address],[address], [address], [facility] 05/16/2023 15:28:19 Td (adult), 5 Lf tetanus toxoid, preservative free, adsorbed 6 completed Madi Oakley MD [address] [place] [address],[address], [address], [facility] 05/16/2023 15:28:19 Influenza, split virus, quadrivalent, PF 5 completed Madi Oakley MD [address] [place] [address],[address], [address], [facility] 05/16/2023 15:28:19 Past Encounters Encounter ID Performer Location Encounter Start Date Encounter Closed Date Diagnosis/Indication Diagnosis SNOMED-CT Code Diagnosis ICD10 Code Diagnosis Note [id number] Madi Oakley MD [address] [place] [address] 07/26/2022 12:19:34 08/02/2022 16:33:21 Hydronephrosis 07550900 N13.30 2. Hydronephr osis, left- retrograde pyelogram (06/21/20) revealed obstructio n at Left UVJ- s/p dilation of Left UVJ (06/21/20) - renal function is stable- monitor Creatinine - if renal function worsens - consider Left percutaneo us nephrostom y tube placement with antegrade stent placement Carcinoma of prostate 25 1938322 C61 1. Prostate cancer (HC)- T1c - Nickie 4+3 = 7 - s/p EBRT (03/18/20) and Hormonal therapy (October - )- PSA (0.31) - remains low- Follow-up in 9 months with PSA and Bladder scan Lower urin kenyatta tract symptoms due to benign prostatic hypertrophy 6930670189 9101 N40.1 3. BPH- incomplete bladder emptying (PVR = 179 mL)- continue Flomax 0.8 mg daily- monitor PVRs with Bladder scan(if PVR is high (> 400 mL) - recommend self-cath 5-6x/day)( consider adding Cialis 5 mg daily) Urinary incontinence 165 967951 R32 4. Urinary incontinen ce- uses Depends- can try Condom catheter (medium or intermitte nt size) [id number] [facility] [address] [place] [address] [place] [address] 05/16/2023 15:01:42 05/28/2023 14:58:00 Carcinoma of prostate 311663195 C61 1. Prostate cancer (HC)- T1c - Roann 4+3 = 7 - s/p EBRT (03/18/20) and Hormonal therapy (October - months)- PSA (2.3) - increased (concernin g for cancer growth)- recheck PSA in 1-2 months (in [place] )- if PSA increases - recommend restarting Hormonal therapy or checking PSMA PET scan to assess for recurrence Hydronephrosis 27595862 N13.30 2. Hydronephr osis, left- retrograde pyelogram (06/21/20) revealed obstructio n at Left UVJ- s/p dilation of Left UVJ (06/21/20) - renal function is stable- monitor Creatinine - if renal function worsens - consider Left percutaneo us nephrostom y tube placement with antegrade stent placement Lower urin kenyatta tract symptoms due to benign prostatic hypertrophy 1397724904 9101 N40.1 3. BPH- incomplete bladder emptying (PVR = 179 mL)- continue Flomax 0.8 mg daily- monitor PVRs- check Bladder scan at Follow-up( if PVR is high (> 400 mL) - recommend self-cath 5-6x/day)( consider adding Cialis 5 mg daily) Urinary incontinence 165 480174 R32 4. Urinary incontinen ce- uses Depends- can try Condom catheter (medium or intermitte nt size) [id number] Madi Oakley MD [facility] [address] [facility] [place] [address] 10/08/2024 09:58:18 10/13/2024 10:36:17 Carcinoma of prostate 703248238 C61 1. Prostate cancer (HC)- T1c - Roann 4+3 = 7 - s/p EBRT (03/18/20) and Hormonal therapy (October - 6 months)- + PSMA PET (Jul 2023) - + pelvic lymph nodes- s/p ADT (Firmagon 08/03/23) - currently in monthly Lupron - plan 2 year course- s/p IMRT to pelvic nodes - (completed September 2023)- PSA (< 0.04)- Follows with Oncology in [place] - scheduled for PSA check every 3 months in Hydronephrosis 97716310 N13.30 H/O Hydronephr osis, left- retrograde pyelogram (06/21/20) revealed obstructio n at Left UVJ- s/p dilation of Left UVJ (06/21/20) - renal function is stable- monitor Creatinine - if renal function worsens - consider Left percutaneo us nephrostom y tube placement with antegrade stent placement Lower urin kenyatta tract symptoms due to benign prostatic hypertrophy 3898587664 9101 N40.1 2. BPH- bladder emptied well (PVR = 8 mL)- continue Flomax 0.8 mg daily- monitor PVRs- discussed trying Gemtesa for bladder irritation - patient declined- check Bladder scan at Follow-up( if PVR is high (> 400 mL) - recommend self-cath 5-6x/day)( consider adding Cialis 5 mg daily)- Follow-up in 1 year with UA and Bladder scan Health Concerns Section Related Observation LastModified by Organization Detai ls LastModified Time None Recorded Concern Status LastModified by Organization Details LastModified Time None Recorded Advance Directives Directive None Recorded Payers Insurance Date Sequence Insurance Name Policy Number Policy Luis Covered Member ID Luis Member ID Guarantor Name 10/08/2024 1 [place]IC[place] COST [id number] Clark Barrios [id number] Clark Barrios Notes Date Note Type Note Provider Name and Address Organization Details Recorded Time 07/26/2022 text/html 82 yo male with prostate cancer (T1c - Roann 4+3 = 7) - s/p EBRT (03/18/20) and Hormonal therapy (6 months) He presented in September 2018 with retention (3 L) and developed gross hematuria after bladder decompression. CT scan (09/17/18) - Bilateral hydronephrosis (dilation to bladder) and thickened bladder wall - no stones. His renal function improved with bladder drainage. His hematuria has resolved. Cystoscopy (10/07/18) revealed 1-2+ lateral lobe enlargement of the prostate and 1+ trabeculation in the bladder. Follow-up Renal U/S showed persistent Left hydronephrosis. He underwent Cystoscopy with dilation of Left UVJ and attempted stent placement on 06/21/20. He is on Flomax 0.8 mg daily.Prostate cancer - T1c - Roann 4+3 = 7Trus bx (10/01/19) - 39.7 gm- Left - Roann 4+3 = 7 - involving 6/6 cores (60-100%) - no perineural invasion- Right - Nickie 4+3 = 7 - involving 3/6 cores (5-30%) - no perineural invasion- he was started on Hormonal therapy - Casodex 50 mg daily (on 10/09/19)- Eligard (10/30/19)05/23/21 - He presents for follow-up on Left hydronephrosis and prostate cancer. He is currently not self-cathing - he voids every 30-60 minutes during the day and wears Depends at night. His volumes range from 300-800 mL. He reports voiding if there is gas or stool in his rectum. He notes cloudy urine (occasional blood) in the last portion of urine drained from his bladder. He reports minimal pain with catheterization currently. He denies fever or flank pain.07/26/22 - He presents for follow-up on prostate cancer and left hydronephrosis. He voids every 30-45 minutes during the day (on Lasix). He notes urgency and slow stream - denies hesitancy or dysuria. He uses 2-3 Depends at night. He denies flank pain.- PVR = 179 mL- PSA - 0.33 Cr - 1.76 (06/14/20)- 1.37 (06/25/20)- 1.70 (03/16/21)- 1.47 (03/14/22)PSA - 2.27 (10/08/07) -0.33 (07/26/22)- 2.08 (10/26/08)- 2.53 (11/09/09)- 2.74 (11/23/10)- 13.67 (10/29/18)- 7.88 (01/10/19)- 11.37 (04/22/19)- 16.18 (06/24/19)- 15.30 (09/08/19)- 0.51 (01/28/20)- 0.21 (05/18/20)- 0.18 (03/16/21)- 0.27 (11/18/21)- 0.27 (04/25/22)- 0.33 (07/26/22)Bone scan (10/14/19) - no evidence of skeletal metastases - +Left hydronephrosisCT scan (10/14/19) - large capacity bladder - + Left hydronephrosis (ureter dilated to the level of the bladder)- resolution of Right hydronephrosis- chronic enlarged Left pelvic sidewall / common iliac lymph nodes (up to 2.5 cm) - unchanged since 2011- 1.5 cm soft tissue nodule anterior to bladderRenal U/S (05/03/20) - Left - severe hydronephrosis (unchanged)- Right - interval resolution of hydronephrosis Renal U/S (06/09/21) - still has severe hydronephrosis (dilation) of the Left kidney.- bladder emptied well Madi Oakley MD [address] [facility],[address], [place], [address], [place] - [facility] 07/26/2022 13:04:29 05/16/2023 text/html 83 yo male with prostate cancer (T1c - Roann 4+3 = 7) - s/p EBRT (03/18/20) and Hormonal therapy (6 months) He presented in September 2018 with retention (3 L) and developed gross hematuria after bladder decompression. CT scan (09/17/18) - Bilateral hydronephrosis (dilation to bladder) and thickened bladder wall - no stones. His renal function improved with bladder drainage. His hematuria has resolved. Cystoscopy (10/07/18) revealed 1-2+ lateral lobe enlargement of the prostate and 1+ trabeculation in the bladder. Follow-up Renal U/S showed persistent Left hydronephrosis. He underwent Cystoscopy with dilation of Left UVJ and attempted stent placement on 06/21/20. He is on Flomax 0.8 mg daily.Prostate cancer - T1c - Roann 4+3 = 7- s/p EBRT - (03/18/20)- s/p ADT - (Eligard - 10/30/19) - (6 months)05/23/21 - He presents for follow-up on Left hydronephrosis and prostate cancer. He is currently not self-cathing - he voids every 30-60 minutes during the day and wears Depends at night. His volumes range from 300-800 mL. He reports voiding if there is gas or stool in his rectum. He notes cloudy urine (occasional blood) in the last portion of urine drained from his bladder. He reports minimal pain with catheterization currently. He denies fever or flank pain.07/26/22 - He presents for follow-up on prostate cancer and left hydronephrosis. He voids every 30-45 minutes during the day (on Lasix). He notes urgency and slow stream - denies hesitancy or dysuria. He uses 2-3 Depends at night. He denies flank pain. 05/16/23 - He presents for follow-up on Prostate cancer. He voids every 30-45 minutes during the day (on Lasix) - uses Depends at night- PSA - 2.3 C r - 1.76 (06/14/20)- 1.37 (06/25/20)- 1.70 (03/16/21)- 1.47 (03/14/22) PSA - 2.74 (11/23/10)- 13.67 (10/29/18)- 7.88 (01/10/19)- 11.37 (04/22/19)- 16.18 (06/24/19)- 15.30 (09/08/19)- 0.51 (01/28/20)- 0.21 (05/18/20)- 0.18 (03/16/21)- 0.27 (11/18/21)- 0.27 (04/25/22)- 0.33 (07/26/22)- 0.5 (10/24/22)- 0.99 (03/20/23)- 2.3 (05/16/23)Bone scan (10/14/19) - no evidence of skeletal metastases - +Left hydronephrosisCT scan (10/14/19) - large capacity bladder - + Left hydronephrosis (ureter dilated to the level of the bladder)- resolution of Right hydronephrosis- chronic enlarged Left pelvic sidewall / common iliac lymph nodes (up to 2.5 cm) - unchanged since 2011- 1.5 cm soft tissue nodule anterior to bladderRenal U/S (05/03/20) - Left - severe hydronephrosis (unchanged)- Right - interval resolution of hydronephrosis Renal U/S (06/09/21) - still has severe hydronephrosis (dilation) of the Left kidney.- bladder emptied well Madi Oakley MD [address] [facility],[address], [place], [address], [place] - [facility] 05/17/2023 22:38:50 10/08/2024 text/html 84 yo male with prostate cancer (T1c - Nickie 4+3 = 7) - s/p EBRT (03/18/20) and Hormonal therapy (6 months) He presented in September 2018 with retention (3 L) and developed gross hematuria after bladder decompression. CT scan (09/17/18) - Bilateral hydronephrosis (dilation to bladder) and thickened bladder wall - no stones. His renal function improved with bladder drainage. His hematuria has resolved. Cystoscopy (10/07/18) revealed 1-2+ lateral lobe enlargement of the prostate and 1+ trabeculation in the bladder. Follow-up Renal U/S showed persistent Left hydronephrosis. He underwent Cystoscopy with dilation of Left UVJ and attempted stent placement on 06/21/20. He is on Flomax 0.8 mg daily.Prostate cancer - T1c - Roann 4+3 = 7- s/p EBRT - (03/18/20)- s/p ADT - (Eligard - 10/30/19) - (6 months)- + PSMA PET (Jul 2023) - + pelvic lymph nodes- s/p ADT (Firmagon 08/03/23) - currently in monthly Lupron - plan 2 year course- s/p IMRT to pelvic nodes - (completed September 2023)05/23/21 - He presents for follow-up on Left hydronephrosis and prostate cancer. He is currently not self-cathing - he voids every 30-60 minutes during the day and wears Depends at night. His volumes range from 300-800 mL. He reports voiding if there is gas or stool in his rectum. He notes cloudy urine (occasional blood) in the last portion of urine drained from his bladder. He reports minimal pain with catheterization currently. He denies fever or flank pain.07/26/22 - He presents for follow-up on prostate cancer and left hydronephrosis. He voids every 30-45 minutes during the day (on Lasix). He notes urgency and slow stream - denies hesitancy or dysuria. He uses 2-3 Depends at night. He denies flank pain. 05/16/23 - He presents for follow-up on Prostate cancer. He voids every 30-45 minutes during the day (on Lasix) - uses Depends at night 10/08/24- He presents for follow-up on prostate cancer and urination. No hot flashes. He voids every 1 hour during the day and uses Depends at night. + Slow stream - no dysuria.- PSA - <0.04 ng/ml-PVR = 8 mL Cr - 1.76 (06/14/20)- 1.37 (06/25/20)- 1.70 (03/16/21)- 1.47 (03/14/22) PSA - 2.74 (11/23/10)- 13.67 (10/29/18)- 7.88 (01/10/19)- 11.37 (04/22/19)- 16.18 (06/24/19)- 15.30 (09/08/19)- 0.51 (01/28/20)- 0.21 (05/18/20)- 0.18 (03/16/21)- 0.27 (11/18/21)- 0.27 (04/25/22)- 0.33 (07/26/22)- 0.5 (10/24/22)- 0.99 (03/20/23)- 2.3 (05/16/23)- <0.04 (10/08/24)Bone scan (10/14/19) - no evidence of skeletal metastases - +Left hydronephrosisCT scan (10/14/19) - large capacity bladder - + Left hydronephrosis (ureter dilated to the level of the bladder)- resolution of Right hydronephrosis- chronic enlarged Left pelvic sidewall / common iliac lymph nodes (up to 2.5 cm) - unchanged since 2012- 1.5 cm soft tissue nodule anterior to bladderRenal U/S (05/03/20) - Left - severe hydronephrosis (unchanged)- Right - interval resolution of hydronephrosis Renal U/S (06/09/21) - still has severe hydronephrosis (dilation) of the Left kidney.- bladder emptied well Madi Oakley MD [address] [facility],[address], [place], [address], [facility] - [facility] 10/08/2024 14:12:47
--- OUTSIDE RECORDS SUMMARY | 2024-12-03 14:05 | XMS_ITS | Clinical Summary ---
Author Organization [facility] Address [address] [place] [address] Care Team Providers Care Brokerage Coordinator Name Role Phone Clark Tolentino MD Primary Care Provider Adelaida Kohler MD Unavailable [phone] Allergies Active Allergy Reactions Criticality Noted Date Comments Nifedipine Edema 09/12/2006 Spironolactone Other - Describe In Comment Field 04/28/2015 Increased potassium and creatinine. Terazosin Other - Describe In Comment Field 03/20/2014 Near syncope Medications coenzyme q10 (CO Q-10) 100 mg cap Take 100 mg by mouth once daily. Active calcium carbonate-vitamin D3, 600 mg-400 unit, 600 mg(1,500mg) -400 unit tablet Take 1 Tablet by mouth once daily with a meal. 10/24/19 20 Active Magnesium 200 mg tab Take 1 Tablet (200 mg) by mouth once daily. 0 09/30/19 21 Active tamsulosin (FLOMAX) 0.4 mg capsule Take 0.4 mg by mouth once daily after a meal. Active atorvastatin (LIPITOR) 40 mg tabletIndications: Mixed hyperlipidemia Take 1 Tablet (40 mg) by mouth once daily. 90 Tablet 3 02/18/20 24 Active tirzepatide (Mounjaro) 2.5 mg/0.5 mL penIndications:Deana betes mellitus due to underlying condition with diabetic neuropathy, without long-term current use of insulin (HC) Inject 2.5 mg subcutaneous once weekly. 2 mL 02/18/20 24 Active tirzepatide (Mounjaro) 5 mg/0.5 mL penIndications:Deana betes mellitus due to underlying condition with diabetic neuropathy, without long-term current use of insulin (HC) Inject 5 mg subcutaneous once weekly. 2 mL 02/18/20 24 Active tirzepatide (Mounjaro) 7.5 mg/0.5 mL penIndications:Deana betes mellitus due to underlying condition with diabetic neuropathy, without long-term current use of insulin (HC) Inject 7.5 mg subcutaneous once weekly. 2 mL 02/18/20 24 Active pen tirzepatide (Mounjaro) 10 mg/0.5 mL penIndications:Deana betes mellitus due to underlying condition with diabetic neuropathy, without long-term current use of insulin (HC) Inject 10 mg subcutaneous once weekly. 2 mL 02/18/20 24 Active tirzepatide (Mounjaro) 12.5 mg/0.5 mL penIndications:Deana betes mellitus due to underlying condition with diabetic neuropathy, without long-term current use of insulin (HC) Inject 12.5 mg subcutaneous once weekly. 2 mL 02/18/20 24 Active furosemide (LASIX) 40 mg tabletIndications: Benign essential HTN TAKE 3 TABLETS(120 MG) BY MOUTH EVERY MORNING 270 Tablet 3 03/30/20 24 Active glipiZIDE extended-release (GLUCOTROL XL) 10 mg Extended-Release tabletIndications: Diabetes mellitus due to underlying condition with diabetic neuropathy, without long-term current use of insulin (HC) Take 1 Tablet (10 mg) by mouth two times daily before meals. 180 Tablet 1 05/29/20 24 Active empagliflozin (JARDIANCE) 25 mg tabletIndications: Stage 3b chronic kidney disease (HC) Take 1 Tablet (25 mg) by mouth once daily. 90 Tablet 1 05/29/20 24 Active albuterol HFA (PRO-AIR; VENTOLIN; PROVENTIL) 90 mcg/actuation inhalerIndications :Bronchospasm Inhale 1-2 Puffs by mouth every 6 hours if needed for Shortness Of Breath. 6.7 g 3 05/29/20 24 Active tirzepatide (Mounjaro) 15 mg/0.5 mL penIndications:Deana betes mellitus due to underlying condition with diabetic neuropathy, without long-term current use of insulin (HC) Inject 15 mg subcutaneous once weekly. 6 mL 1 08/25/19 25 Active ondansetron 8 mg disintegrating tabletIndications: Nausea Place 1 Tablet (8 mg) on the tongue every 8 hours if needed for Nausea/Vomiting . 30 Tablet 1 11/20/19 25 Active ondansetron (ZOFRAN ODT) 8 mg disintegrating tabletIndications: Nausea Place 1 Tablet (8 mg) on the tongue every 8 hours if needed for Nausea/Vomiting . 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 Benign prostatic hyperplasia with urinary retent ion 10/07/2018 Hydronephrosis 09/17/2018 Bladder outlet obstruction 09/17/2018 Controlled type 2 diabetes m ellitus with complication, without long-term current use of insulin 08/07/2017 Stage 3b chronic kidney disease 2015 Diabetes mellitus with neuropathy 10/09/2011 Other lymphedema 09/13/2011 Unspecified essential hypertension 09/12/2006 Unspecified tinnitus 09/12/2006 Hypertrophy of prostate with out urinary obstruction and other lower urinary tract symptoms (LUTS) 09/12/2006 Mixed hyperlipidemia 09/12/2006 Resolved Problems Problem Noted Date Diagnosed Date Resolved Date Bradycardia with 31-40 beats per minute 01/29/2023 03/23/2023 AJIT (acute kidney injury) 01/29/2023 Cellulitis of lower extremity 01/29/2023 03/23/2023 AJIT (acute kidney injury) 11/14/2018 CKD (chronic kidney disease) stage 3, GFR 30-59 ml/min 11/14/2018 04/22/2019 Anemia, unspecified 11/14/2018 09/18/19 20 Hyperkalemia 09/17/2018 01/30/2023 AJIT (acute kidney injury) 09/17/2018 Vitamin D deficiency 01/10/2013 019 Skin ulcer 11/15/2009 01/17/2010 Overview (11/15/2009): Right Lower Leg - due to Edema issues. Benign neoplasm of colon 07/23/200902/2019 Overview (03/31/2016): Colonoscopy 07/2009 polyp repeat in 5 years Colonoscopy 03/2016 hyperplastic polyp repeat in 5 years Edema 10/15/2007 09/17/2018 Special screening for malign ant neoplasm of prostate 08/07/2007 09/13/2018 Routine general medical exam ination at a health care facility 02/01/2007 09/13/2018 Overview (11/15/2009): colonoscopy 05/2004 Recheck 5 yrs: Polyps Colonoscopy 07/2009 polyp repeat in 5 years Obesity, unspecified 09/12/2006 016 Other malignant neoplasm of skin, site unspecified 09/12/2006 09/13/2018 DIABETES 05/30/2002 08/07/2017 Encounters Date Type Department Care Team Description 11/10/2024 Orders Only [facility] [address] [place] [address] Clark Tolentino MD <No scans attached> 10/14/2024 Travel 10/13/2024 1:00 PM CDT Ancillary Procedure [facility] [address] [place] [address] 10/13/2024 11:00 AM CDT Ancillary Procedure [facility] [address] [place] [address] 10/12/2024 Travel 10/10/2024 Transcribe Orders [facility] [phone] Madi Oakley MD 10/06/2024 Transcribe Orders [facility] [phone] Nelson Qureshi MD from Last 3 Months Immunizations Immunization Administration Dates Next Due AMB Influenza, IIV3 (Age >=3 years)(Flu Clinic Only) 05/27/2008 Amb Influenza, Inactivated A IIV4 (Age 65+ Years) Preserv Free 04/21/2020 COVID-19 vaccine (Moderna 50 mcg/0.5mL) 12YO+ BIVALENT PF, MDV 12/05/2022 COVID-19 vaccine (Pfizer-Bio NTech 30mcg/0.3mL) 12YO+ BIVALENT PF, MDV 04/25/2022 COVID-19 vaccine (Pfizer-Bio NTech 30mcg/0.3mL) PF, MDV 03/28/2021,08/29/2020,08/06/2020 Influenza A (H1N1), Inactiva prateek (Age >=3 Years) 05/22/2009 Influenza Virus, Unspecified 04/22/2017,05/01/20 13 Influenza, High-dose Inactivated 024,03/04/2019,05/03/2018,04/24,05/24/2016,03/20/2014,05/24/2012 Influenza, High-dose Quadriv alent Inactivated 04/19/2022 Influenza, IIV3 (Age 6-35 mos) 04/21/2011 Influenza, IIV3 (Age >=3 years) 04/30/20 13,06/04/2012,04/21/2011,04/05,04/09/2009,05/27/2008,04/22/2007 ,08/24/2006 Influenza, IIV4 2015 Influenza, Inactivated AIIV4 (Age 65+ Years) Preserv Free 03/23/2023,04/25/2021 Influenza, Inactivated IIV3 (Age 65+ Years) Preserv Free 03/04/2019 Pneumococcal Conj 20-valent (Prevnar 20) 03/17/2024 Pneumococcal Poly,23-Valent (Pneumovax) 09/12/2010,02/01/2007 Pneumococcal conj 13-Valent (Prevnar 13) 04/16/2014 RSV, Bivalent Vaccine Recons tituted (Abrysvo 120MCG/0.5mL) 03/27/2023 Td (Age >=7 Years) 03/08/2006 Td, Preservative Free (age >= 7 Years) 6 Tdap 05/15/2011 Zoster (Shingrix-RZV, recombinant) 03/04/2019,06 /09/2018 Zoster (Zostavax-ZVL, live) 02/01/2007 Family History Medical History Relation Name Comments Asthma Father Cynthia Emphysema Cancer-breast Maternal Aunt Hypertension Mother Pallavi Stroke Mother Pallavi Asthma Paternal Grandfather Diabetes Paternal Grandmother Hypertension Sister Suzanna Other Sister Suzanna Nose Obstructio n: did well w Surgery Anesthesia Problem No Family History Blood Disease No Family History Relation Name Status Comments Father Monee (Age 73) COPD Maternal Aunt Mother Pallavi (Age 79) CVA Paternal Grandfather Paternal Grandmother Sister Suzanna Alive Social History Tobacco Use Types Packs/Day Years Used Date Smoking Tobacco: Former Cigarettes 0.5 20 1 961 - 07/09/1980 Smokeless Tobacco: Never Tobacco Cessation:Counseling Given: No Alcohol Use Standard Drinks/Week Comments Yes 0 (1 standard drink = 0.6 oz pur e alcohol) 1/day or less PHQ-2 Answer Date Recorded PHQ-2 TOTAL SCORE 0 05/29/2024 Social Connections Answer Date Recorded Frequency of Communication with Friends and Fami ly 0 02/02/2023 Financial Resource Strain Answer Date R ecorded Difficulty of Paying Living Expenses 3 02/02/2023 Difficulty of Paying Living Expenses Not on file 02/02/2023 Food Insecurity Answer Date Recorded Worried About Running Out of Food in the Last Ye ar 1 02/02/2023 Transportation Needs Answer Date Record ed Lack of Transportation (Medical) 1 02/02/2023 Housing Stability Answer Date Recorded Unable to Pay for Housing in the Last Year 1 02/02/2023 Sex and Gender Information Value Date Recorded Sex Assigned at Male 12/10/2020 11:40 AM CDT Legal Sex Male 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 Gender Identity Male 12/10/2020 11:40 AM CDT Sexual Orientation Straight 12/10/2020 11 :40 AM CDT 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 file Not on file Not on file Obstetrics History Last Filed Vital Signs Vital Sign Reading Time Taken Comments Blood Pressure 152/86 05/29/2024 4:08 PM CABLE SYSTEMS INSTALLER Pulse 81 05/29/2024 4:08 PM CABLE SYSTEMS INSTALLER Temperature 36.4 C (97.5 F) 01/31/2023 9:17 AM CDT Respiratory Rate 18 01/31/2023 9:17 AM CDT Oxygen Saturation 98% 05/29/2024 4:08 PM CABLE SYSTEMS INSTALLER Inhaled Oxygen Concentration - - Weight 131.9 kg (290 lb 12.8 oz) 05/29/2024 4:08 PM CABLE SYSTEMS INSTALLER Height 176.7 cm (5' 9.57) 05/29/2024 4:08 PM CS T Body Mass Index 42.25 05/29/2024 4:08 PM CABLE SYSTEMS INSTALLER Plan of Treatment Upcoming Encounters Date Type Department Care Team (Late st Contact Info) Description 12/12/2024 1:00 PM CDT Office Visit [facility] [address] [place] [address] Salvador Botello MD [address] [place] [address] 02/13/2025 Cardiac Device Check [facility] [phone] Health Maintenance Due Date Last Done Comments Tetanus booster 05/15/2021 05/15/2011, 02/08, 03/08/2006 COVID-19 vaccine series ( season) 2024 03/17/2024, 12/05/2022, 04/25/2022, Additional history exists BMI (ht and wt on same day) for age 18+ 05/29/2025 05/29/2024, 07/27/2023, 04/25/2022, Additional history exists Depression screening for age 12+ 05/29/2025 05/29/2024, 04/26/2022, 04/25/2022, Additional history exists Medicare Wellness for age 65+ 05/30/2025 05/29/2024, 04/25/2022, 12/25/2011, Additional history exists Tdap Completed 05/15/2011 Zoster (shingles) series for age 50+ Completed 03/04/2019, 12/09/2018, 02/01/2007 RSV vaccine for adults or Completed 03/27/2023 Influenza Vaccine Completed 03/17/2024, , 04/25/2021, Additional history exists Pneumococcal series for age 50+ Completed 03/17/2024, 04/16/2014, 09/12/2010, Additional history exists Hepatitis B series for 19+ Aged Out N o longer eligible based on patient's age to complete this topic Goals Goal Patient Goal Type Associated Problems Recent Progress Patient-Stated? Author BLOOD PRESSURE - MAINTAINS BP less than 140/90 Blood Pressure No Vikash Rai MD Procedures Procedure Name Priority Date/Time Associated Diagnosis Comments XR DXA BONE DENSITY 2 SITES AXIAL AND 1 SITE PERIPHERAL Routine 10/13/2024 11:47 AM CDT Rising PSA following treatment for malignant neoplasm of prostate Secondary male hypogonadism CT ABDOMEN PELVIS WO Routine 10/13/2024 11:40 AM CDT Pyuria from Last 3 Months Results * XR DXA BONE DENSITY 2 SITES AXIAL AND 1 SITE PERIPHERAL (10/13/2024 11:47 AM CDT) Anatomical Region Laterality Modality LUMBAR SPINE Other Impressions 10/21/2024 2:10 PM CDT Normal bone density. RECOMMENDATIONS: The National Osteoporosis Foundation recommends pharmacologic treatment for patients with T-scores of -2.5 or less, patients with prior history of fragility fractures, or patients with 10-year probability of greater than 3% at hips or greater than 20% of suffering major osteoporotic fractures. Recommend continued optimization of calcium and vitamin D intake through dietary means and/or supplementation and regular exercise. Repeat scan recommended as needed. Miranda Martino PA-C [facility] 10/21/2024 . Narrative 10/21/2024 2:10 PM CDT For Patients: Results are automatically released to your [facility] account once available, in compliance with federal regulations. This means that you may see your results before your provider has had a chance to review them. Please allow 2-3 business days for your provider to comment on the results. XR DXA Bone Mineral Density (BMD) EXAM LOCATION: [address] [address] PATIENT NAME: Clark Barrios DATE OF : 1940 EXAM DATE: 10/13/2024 REQUESTING PROVIDER: Nelson Qureshi MD GENDER AT : male HEIGHT: 5' 9.57 (05/29/2024) WEIGHT: 290 lb 12.8 oz (05/29/2024) MENOPAUSAL STATUS: Not Applicable RACE/ETHNICITY: White RISK FACTORS: Cancer Treatment, Diabetes Type 1, Hyperparathyroidism, Prostate Cancer Treatment (hormone deprivation medication), Renal Failure, Smoking (prior), and White Race CURRENT MEDICATION FOR BONE LOSS: NONE INDICATION: Rising PSA following treatment for malignant neoplasm of prostate COMPARISON DATE(S): 2023 DXA scans are compared to prior studies for a patient only when the two (or more) studies were performed on the same scanner. It is not possible to compare data generated on one scanner to data from another because there are not standards in DXA equipment. This applies even if the two scanners are made by the same sports physiologist. PROCEDURE: Dual-energy x-ray absorptiometry performed with routine technique. Reporting is completed in the form of a T-score. The T-score represents the standard deviation from peak bone mass based on young healthy adult. A Z-score is used for diagnosis in premenopausal women, and for men under the age of 50. FINDINGS: RESULT LUMBAR SPINE L1-L4(L2) BMD: 1.830 g/cm2 T-Score: + 4.8 Z-Score: + 4.9 Change from prior in 2023: Decrease 3.2%. RESULTS FEMUR Left femoral neck BMD: 1.248 g/cm2 T-Score: + 1.4 Z-Score: + 2.5 Change from prior in 2023: Decrease 2.7%. Right femoral neck BMD: 1.452 g/cm2 T-Score: + 2.9 Z-Score: + 4.0 Change from prior in 2023: Increase 3.2%. Left hip BMD: 1.444 g/cm2 T-Score: + 2.4 Z-Score: + 3.2 Change from prior in 2023: Decrease 2.8%. Right hip BMD: 1.511 g/cm2 T-Score: + 2.8 Z-Score: + 3.6 Change from prior in 2023: Increase 3.6%. RESULT FOREARM Left Forearm distal radius BMD: 1.228 g/cm2 T-Score: + 2.4 Z-Score: + 3.7 Change from prior in 2023: Increase 17.7%. WHO criteria: Normal: T-score at or above -1 SD Osteopenia: T-score between -1.1 and -2.4 SD Osteoporosis: T-score at or below -2.5 SD FRAX RISK CALCULATION (USED FOR OSTEOPENIA ONLY): 10-year probability of major osteoporotic fracture: 3.3%. 10-year probability of hip fracture: 0.6%. us Nelson Qureshi MD DEXA Final Result * CT ABDOMEN PELVIS WO (10/13/2024 11:40 AM CDT) Anatomical Region Laterality Modality Abdomen, Pelvis, AORTA, LIVER, SPLEEN Computed Tomography 10/13/2024 1:37 PM CDT Narrative 10/13/2024 1:37 PM CDT For Patients: As a result of the Cures Act, medical imaging exams and procedure reports are released immediately into your electronic medical record. You may view this report before your referring provider. If you have questions, please contact your health care provider. Indication: Pyuria Technique: Noncontrast CT abdomen and pelvis Please note that all CT scans at this facility use dose modulation, iterative reconstruction, and/or weight-based dosing when appropriate to reduce radiation dose to as low as reasonably achievable. Comparison: 10/14/2019 Findings: Lung bases are clear. Dense mitral annular calcification. Sub cm intrahepatic cyst. Calcified splenic granulomas. No adrenal nodule. Left renal cortical thinning. Left hydroureteronephrosis unchanged. Stones within the lower pole of the left kidney are present. No perinephric stranding or perinephric fluid. Atherosclerotic changes. Pancreas normal. Unremarkable gallbladder. No bladder stone. Postprocedural changes to the prostate. Fat filled inguinal hernias. Similar appearance of left pelvic lymph nodes. Multilevel degenerative changes. No fracture. Impression: Chronic left hydroureteronephrosis with renal cortical atrophy. Small stones in the lower pole of the left kidney noted. Bladder distended without plantar calcification. Similar left pelvic lymph nodes. Please note that all CT scans at this facility use dose modulation, iterative reconstruction, and/or weight-based dosing when appropriate to reduce radiation dose to as low as reasonably achievable. Dictated by Raymon Duong MD @ 10/13/2024 1:37:52 PM (Electronically Signed) Procedure Note Raymon Duong MD - 10/13/2024 For Patients: As a result of the 21st Century Cures Act, medical imagingexams and procedure reports are released immediately into your electronicmedical record. You may view this report before your referring provider.If you have questions, please contact your health care provider. Indication: Pyuria Technique: Noncontrast CT abdomen and pelvis Please note that all CT scans at this facility use dose modulation,iterative reconstruction, and/or weight-based dosing when appropriate toreduce radiation dose to as low as reasonably achievable. Comparison: 10/14/2019 Findings: Lung bases are clear. Dense mitral annular calcification. Sub cmintrahepatic cyst. Calcified splenic granulomas. No adrenal nodule. Leftrenal cortical thinning. Left hydroureteronephrosis unchanged. Stoneswithin the lower pole of the left kidney are present. No perinephricstranding or perinephric fluid. Atherosclerotic changes. Pancreas normal.Unremarkable gallbladder. No bladder stone. Postprocedural changes to theprostate. Fat filled inguinal hernias. Similar appearance of left pelviclymph nodes. Multilevel degenerative changes. No fracture. Impression: Chronic left hydroureteronephrosis with renal cortical atrophy. Smallstones in the lower pole of the left kidney noted. Bladder distended without plantar calcification. Similar left pelvic lymph nodes. Please note that all CT scans at this facility use dose modulation,iterative reconstruction, and/or weight-based dosing when appropriate toreduce radiation dose to as low as reasonably achievable. Dictated by Raymon Duong MD @ 10/13/2024 1:37:52 PM (Electronically Signed) Madi Oakley MD CT Final Resu lt from Last 3 Months Insurance BLUE [employer] [place] BLUE HB ONLY MEDICARE PART B HB ONLY MEDICARE PART A HB ONLY [employer] [place] BLUE MR PB ONLY Advance Directives Documents on File Type Date Recorded Patient Police Captain Expl anation Healthcare Directive 09/30/2012 11:33 AM M N HEALTH CARE DIRECTIVE, [facility], 05/03/2007 * Full Code (Latest Code Status on File) Date Activated Date Inactivated Comments 01/29/2023 12:10 PM 01/31/2023 5:56 PM Question Answer Comments Code Status Discussion: Reviewed Preferences * Full Code Date Activated Date Inactivated Comments 09/17/2018 9:26 AM 09/19/2018 2:21 PM Care Teams Brokerage Coordinator Relationship Specialty Start Date End Date Clark Tolentino MD [address] [facility] [place] [address] PCP - General Family Practice 12/13/11 Adelaida Kohler MD [address] [place] [address] Dermatology Dermatology 08/19/19
--- OUTSIDE RECORDS SUMMARY | 2024-12-03 14:05 | XMS_ITS ---
Author Organization [facility] Address [address] [place] [address] Care Team Providers Care Sling Operator Name Role Phone Unavailable Primary Care Provider Unavailabl e Active Problems Problem Noted Date Diagnosed Date Chronic Kidney Disease 10/25/2023 Rising Prostate Specific Ant igen Following Treatment For Malignant Cancer Of Prostate 07/31/2023 Primary Malignant Neoplasm Of Prostate Cancer Staging:Clinical stage from 10/01/2019:Stage IIC(cT1c, cN0, cM0, PSA: 15.3, Grade Group: 3) - Unsigned Current Treatment and Therapy Plans No current plan information found. Past Treatment and Therapy Plans Hem/Onc Therapy Plan 1 Plan Name Start Date Discontinue Date Treatment Medications Discontinue Reason Plan Provider Leuprolide Acetate Every 4 Weeks 09/11/2023 10/13/2024 No medications scheduled. Receiving Treatment Outside of [facility] Marlee Lee APRN, C.N.P., D.N.P. Degarelix 07/30/2023 09/11/2023 degarelix (Firmagon) Amendment Change Marlee Lee APRN, C.N.P., D.N.P. Hem/Onc Therapy Plan 2 Plan Name Start Date Discontinue Date Treatment Medications Discontinue Reason Plan Provider Leuprolide Acetate Every 12 Weeks 09/11/2023 10/25/2023 No medications scheduled. Unlisted Marlee Lee APRN, C.N.P., D.N.P. Past Radiation Episodes * IMRT: Midline AbdomenOverview* First Treatment Date Last Treatment Date Treatment Site Technique Goal Episode Provider 08/22/2023 09/11/2023 Midline Abdomen IMRT Curative * Linked Problems Primary Malignant Neoplasm O f Prostate Treatment Courses* Course [id number] 08/22/2023 - 09/11/2023 Treatment Period Fraction Dose Fractions Total Dose Plans Planned [id number] 08/22/2023 - 09/11/2023 320 cGy 4 ,800 cGy Reference Points Delivered [id number] 08/22/2023 - 09/11/2023 4,800 cGy * IMRT: ProstateOverview* First Treatment Date Last Treatment Date Treatment Site Technique Goal Episode Provider 02/18/2020 03/17/2020 Prostate IMRT Curative * Linked Problems Primary Malignant Neoplasm O f Prostate Treatment Courses* Course 1x Prostate, SV 02/18/2020 - 03/17/2020 Treatment Period Fraction Dose Fractions Total Dose Plans Planned F1 prostate 02/19/2020 - 03/17/2020 300 cGy 6,000 cGy Reference Points Delivered [id number] 02/19/2020 - 03/17/2020 6,000 cGy
--- OUTSIDE RECORDS SUMMARY | 2024-12-03 14:05 | XMS_ITS | Clinical Summary ---
Author Organization [facility] Address [address] [place] [address] Care Team Providers Care Implant Polisher Name Role Phone Unavailable Primary Care Provider Unavailabl e Source Comments Patient records contain information from all sites at [facility]. For routine questions regarding patient records, call [phone] during business hours, M-F 8:00 AM - 5:00 PM Central Time. Record requests for emergency care only can be directed to [phone] at any time.[facility] Allergies Active Allergy Reactions Criticality Noted Date Comments Nifedipine Edema (Reselect Reaction) Low 09/12/2006 Spironolactone Other (see comments) Low 04/28/2015 Increased potassium and creatinine. Terazosin Other (see comments) Low 03/20/2014 Near syncope Medications amLODIPine (NORVASC) 10 mg tablet Take by mouth. 0 Active atorvastatin (LIPITOR) 40 mg tablet Take 40 mg by mouth. 9 Active furosemide (LASIX) 40 mg tablet Take 40 mg by mouth. 9 Active glipiZIDE (GLUCOTROL XL) 2.5 mg 24 hr tablet Take 5 mg by mouth. 9 Active lisinopriL (PRINIVIL,ZESTRIL) 20 mg tablet Take 40 mg by mouth. Patient reports he takes half a pill now. 0 Active tamsulosin (FLOMAX) 0.4 mg 24 hr capsule Take 0.4 mg by mouth. 9 Active co-enzyme Q-10 (CO Q-10) 100 mg capsule Take 100 mg by mouth. Active labetaloL (NORMODYNE) 200 mg tablet Take 400 mg by mouth. 9 Active iron vitamin mineral complex (HEMATINIC PLUS) 106 mg iron- 1 mg tablet Take 1 tablet by mouth daily. Active magnesium 200 mg tablet Take 400 mg by mouth every morning before breakfast. Active calcium carbonate (CALCIUM 600 ORAL) Take 1,200 mg by mouth daily. 0 Active cholecalciferol (VITAMIN D3) 50 mcg (2,000 Unit) tablet Take 2,000 Units by mouth daily. Active albuterol 90 mcg/actuation inhaler Inhale 1-2 puffs every 4 (four) hours as needed. 3 Active calcium carbonate-vitamin D3 1,500 mg (600 mg calcium)-10 mcg (400 Unit) per tablet Take 1 tablet by mouth. 0 Active Jardiance 10 mg tablet Take 10 mg by mouth. Active coenzyme [id number] 100-5 mg-unit capsule Take 100 mg by mouth daily. Active magnesium 200 mg tablet Take 1 tablet by mouth daily. Active ferrous sulfate 81.25 mg (16.25 mg iron) tablet Take 1 tablet by mouth every morning. Active calcium carbonate/vitamin D3 (CALCIUM 500 WITH D ORAL) Take 1 tablet by mouth daily. Active ondansetron ODT (Zofran-ODT) 8 mg disintegrating tablet Dissolve 1 tablet (8 mg total) in the mouth every 8 (eight) hours as needed for nausea or vomiting. 20 tablet 1 4 Active tirzepatide (Mounjaro) 12.5 mg/0.5 mL pen injector injection ADMINISTER 12.5 MG UNDER THE SKIN 1 TIME WEEKLY 4 Active Active Problems Problem Noted Date Diagnosed Date Chronic Kidney Disease 10/25/2023 Rising Prostate Specific Ant igen Following Treatment For Malignant Cancer Of Prostate 07/31/2023 Primary Malignant Neoplasm Of Prostate 0 Cancer Staging:Clinical stage from 10/01/2019:Stage IIC(cT1c, cN0, cM0, PSA: 15.3, Grade Group: 3) - Unsigned Encounters Date Type Department Care Team Description 10/13/2024 Orders Only Department of Radiation Oncology in [place], [place] [address] [place] [address] PonemahGale nelson P.A.-C., M.S. 10/06/2024 8:50 AM CDT - 10/06/2024 9:58 AM CDT Hospital Encounter Department of Radiation Oncology in [place], [place] [address] [place] [address] Nelson Qureshi M.D. Rising Prostate Specific Antigen Following Treatment For Malignant Cancer Of Prostate (Primary Dx); Hypogonadism Male Secondary from Last 3 Months Social History Tobacco Use Types Packs/Day Years Used Date Smoking Tobacco: Never Assessed [facility] Utilities Answer Date Recorded In the past 12 months has e electric, gas, oil, or water company threatened to shut off services in your home? No 08/23/2023 Humiliation, Afraid, Rape, and Kick questionnair e Answer Date Recorded Within the last year, have y ou been afraid of your partner or ex-partner? No 08/08/2022 Within the last year, have y ou been humiliated or emotionally abused in other ways by your partner or ex-partner? No Within the last year, have y ou been kicked, hit, slapped, or otherwise physically hurt by your partner or ex-partner? No 08/08/2022 Within the last year, have y ou been raped or forced to have any kind of sexual activity by your partner or ex-partner? No 08/08/2022 Social Connection and Isolation Panel [NHANES] A nswer Date Recorded In a typical week, how many times do you talk on the phone with family, friends, or neighbors? Three times a week 08/08/2022 How often do you get togethe r with friends or relatives? Patient declined 08/08/2022 How often do you attend chur ch or christian services? Never 08/08/2022 Do you belong to any clubs o r organizations such as yarsani groups, unions, fraternal or athletic groups, or school groups? No 08/08/2022 How often do you attend meet ings of the clubs or organizations you belong to? Never 08/08/2022 Are you , , di vorced, , never , or living with a partner? 08/08/2022 AUDIT-C Answer Date Recorded Q1: How often do you have a drink containing alcohol? 4 or more times a week 08/08/2022 Q2: How many drinks containi ng alcohol do you have on a typical day when you are drinking? 1 or 2 3 Q3: How often do you have si x or more drinks on one occasion? Never 08/08/2022 Overall Financial Resource Strain (CARDIA) Answe r Date Recorded How hard is it for you to pa y for the very basics like food, housing, medical care, and heating? Not hard at all 08/08/2022 [facility] - Occupational Stress Questionnaire Answer Date Recorded Do you feel stress - tense, restless, nervous, or anxious, or unable to sleep at night because your mind is troubled all the time - these days? Not at all 08/08/2022 Exercise Vital Sign Answer Date Recorde d On average, how many days pe r week do you engage in moderate to strenuous exercise (like a brisk walk)? 0 days 08/23/2023 On average, how many minutes do you engage in exercise at this level? 0 min 08/23/2023 Hunger Vital Sign Answer Date Recorded Within the past 12 months, y ou worried that your food would run out before you got the money to buy more. Never true 08/23/19 24 Within the past 12 months, t he food you bought just didn't last and you didn't have money to get more. Never true 08/23/2023 PRAPARE - Transportation Answer Date Re corded In the past 12 months, has l ack of transportation kept you from medical appointments or from getting medications? No 08/09 In the past 12 months, has l ack of transportation kept you from meetings, work, or from getting things needed for daily living? No 08/23/2023 Nutrition Answer Date Recorded On average, how many serving s of fruits and vegetables do you eat per day (serving size is equal to 1 cup or approximately the size of a tennis ball)? 0-2 08/23/2023 Dental Answer Date Recorded Dental: Regular Dentist No 08/08/19 23 Employment Answer Date Recorded Employment status Retired 08/23/2023 Housing Stability Answer Date Recorded What is your living situation today? I have a [facility] place to live 08/23/2023 Education Answer Date Recorded What is the highest level of school you have completed or the highest degree you have received? Master's degree (e.g., MA, MS, Marii, MEd, DIRECTOR [employer]ILD [employer]SE [employer]ER[employer]Y, DONNA) 10/23/2019 Sex and Gender Information Value Date Recorded Sex Assigned at Male 03/16/2021 8:55 PM CDT Legal Sex Male 10:34 AM CDT Gender Identity Male 10/24/2019 1:15 PM CDT Sexual Orientation Straight 10/24/2019 1: 15 PM CDT Last Filed Vital Signs Vital Sign Reading Time Taken Comments Blood Pressure 152/81 10/06/2024 8:56 AM CDT Pulse 101 10/06/2024 8:56 AM CDT Temperature 36.5 C (97.7 F) 10/06/2024 8:56 AM CDT Respiratory Rate 14 02/03/2020 12:46 PM CDT Oxygen Saturation 95% 02/03/2020 12:46 PM CDT Inhaled Oxygen Concentration - - Weight 130 kg (286 lb 6 oz) 10/06/2024 8:56 AM C DT Height 175 cm (5' 8.9) 01/27/2020 9:56 AM CDT Body Mass Index 42.42 01/27/2020 9:56 AM CDT Plan of Treatment Health Maintenance Due Date Last Done Comments DTaP,Tdap,and Td Vaccines (2 - Td or Tdap) 05/15/2021 05/15/2011, 03/08/2006 COVID-19 Vaccine ( season) 2024 12/05/2022, 04/25/2022, 10/10/2021, Additional history exists Depression Screening (Annual PHQ-2) 07/09/2024 Fall Risk Screen (Annual) 07/09/2024 Creatinine Level (Kidney Function Test) 01/14/2025 01/15/2024, 11/08/2023, 08/20/2023, Additional history exists Potassium Level 01/14/2025 01/15/2024, 050 08/2023, 08/20/2023, Additional history exists Sodium Level 01/14/2025 01/15/2024, 050 08/2023, 08/20/2023, Additional history exists Pneumococcal vaccine (50+ years) Completed 04/16/2014, 09/12/2010, 02/01/2007 Zoster Vaccines Completed 03/04/2019, 09/2018, 02/01/2007 RSV vaccine - (32-36 weeks) or 60+ years Completed 03/27/2023 Influenza Vaccine Completed 03/17/2024, , 04/19/2022, Additional history exists HPV Vaccines Aged Out No longer eligi ble based on patient's age to complete this topic IPV Vaccines Aged Out No longer eligi ble based on patient's age to complete this topic Medical Devices Implanted Type Area Gravel Roofer Device Identifier Shelf Expiration Date Model / Serial / Lot Marker Gold Seed 0.8 Deana 3 Lng - [id number] Implanted:Qty: 4 on 02/03/2020 by Elo Jj M.D. at [facility] Imaging Marker [facility] 11/27/2021 [id number] / / [id number] Insurance [facility]
--- OUTSIDE RECORDS SUMMARY | 2024-12-03 14:05 | XMS_ITS | Encounter Summary ---
Author Organization [facility] Address [address] [place] [id number] Care Team Providers Care Charge Gang Weigher Name Role Phone Unavailable Primary Care Provider Unavailabl e Encounter Details Date Type Department Care Team (Late st Contact Info) Description 10/13/2024 Orders Only Department of Radiation Oncology in [place], [place] [address] [place] [id number] Gale Cardoso P.A.-C., M.S. [address] [place] [address] Social History Tobacco Use Types Packs/Day Years Used Date Smoking Tobacco: Never Assessed [facility] Utilities Answer Date Recorded In the past [...] often do you attend chur ch or rastafari services? Never 08/08/2022 Do you belong to any clubs o r organizations such as catholic groups, unions, fraternal or athletic groups, or [...] and heating? Not hard at all 08/08/2022 [facility] - Occupational Stress Questionnaire Answer Date [...] Date Recorded Dental: Regular Dentist No 08/08/19 Employment Answer Date Recorded Employment status Retired 08/23/2023 Housing Stability Answer Date Recorded What is your living situation today? [facility] 08/23/2023 Education Answer Date Recorded What is the highest level of school you have completed or the highest degree you have received? Master's degree (e.g., MA, MS, Marii, MEd, [employer]UTIONS [employer]SULTANT, [employer]NA) 10/23/2019 Sex and Gender Information Value Date Recorded Sex Assigned at Male 03/16/2021 8:55 PM CDT Legal Sex Male 10:34 AM CDT Gender Identity Male 10/24/2019 1:15 PM CDT Sexual Orientation Straight 10/24/2019 1: 15 PM CDT documented as of this encounter Plan of Treatment Not on file documented as of this encounter Visit Diagnoses Not on filedocumented in this encounter
--- NOTE | 2024-12-03 14:46 | CRLHL7_ITS ---
For Patients: As a result of the Cures Act, medical imaging exams and procedure reports are released immediately into your electronic medical record. You may view this report before your referring provider. If you have questions, please contact your health care provider. INDICATION: Weakness. TECHNIQUE: Chest 1 view. COMPARISON: January 28, 2023. FINDINGS: Cardiovascular and mediastinum: Cardiomediastinal silhouette is within normal limits. Left chest wall pacer with leads extending to the right atrium and ventricle. Calcific atherosclerosis of the aorta. Lungs and pleural spaces: Low lung volumes. Lungs are clear. No evidence of pleural effusion. No pneumothorax identified. Bones and soft tissues: Unremarkable. IMPRESSION: No acute cardiopulmonary process identified. No significant interval change. Dictated by Lizz Zamudio MD @ 12/03/2024 3:21:47 PM (Electronically Signed)
[2024-12-03 15:01] LABS: Basophils Absolute Auto 0.03 K/uL (0.00-0.30); Basophils Percent Auto 0.3 % (0.0-3.0); Eosinophils Absolute Auto 0.03 K/uL (0.00-0.50); Eosinophils Percent Auto 0.3 % (0.0-7.0); Hematocrit 44.2 % (37.0-53.0); Immature Granulocytes Abs Auto 0.11 K/uL (0.00-0.30); Immature Granulocytes Pct Auto 1.1 %; Lymphocytes Percent Auto 9.4 % (20-44); Mean Corpuscular HGB Conc 32 gm/dL (32-36); Mean Corpuscular Hemoglobin 29 pg (26-34); Mean Corpuscular Volume 90 fL (80-100); Monocytes Percent Auto 12.6 % (0.0-11.0); Neutrophils Percent Auto 76.3 % (42.0-72.0); Platelet Count* 193 K/uL (140-440); RDW Coefficient of Variation % 14.6 % (11.5-15.5); White Blood Count* 10.16 K/uL (4.50-11.00)
--- NOTE | 2024-12-03 15:01 | ED_ITS ---
HPI - General Adult General Chief complaint: Hypotension Stated complaint: Low blood pressure Time Seen by Provider: 12/03/24 14:14 History of Present Illness HPI narrative: This is a 4 year white male who noticed low blood pressure at home and was feeling poorly for about 3 hours this morning now he feels better his blood pressures improved he is in the 1 teen systolic range she was in the 70 and 80 range systolic earlier today. He has a history of long-term diabetes a pacemaker chronic cough an adenocarcinoma the prostate he reports he has had some mild heart failure and chronic lower extremity edema with stasis changes. He denies chest pain or shortness of breath diaphoresis, nausea or neck pain. The patient presents to the ED for evaluation. On presentation he had an EKG done that showed probable atrial fibrillation and incomplete right bundle branch block he has also got a anteroseptal ST elevation in V1 2 and 3 this is clearly different from his prior EKGs. Again he denies chest pain at this time. Related Data Home Medications ?Medication ?Instructions ?Recorded ?Confirmed atorvastatin 40 mg tablet 40 mg PO DAILY 11/12/2211/07 tamsulosin 0.4 mg capsule 0.8 mg PO DAILY 11/12/22 ascorbate calcium (vitamin C) 500 500 mg PO DAILY 01/0712/03/24 mg tablet ferrous sulfate 325 mg (65 mg 325 mg PO DAILY 01/28/23 12/03/24 iron) tablet empagliflozin 10 mg tablet 10 mg PO QAM 08/03/2312/03 (Jardiance) magnesium 200 mg tablet 200 mg PO DAILY 08/03/23 furosemide 40 mg tablet 40 mg PO BID 04/30/24 tirzepatide 2.5 mg/0.5 mL 5 mg subcut QWEEK 04/30/24 0 12/03/24 subcutaneous pen injector (Mounjaro) ondansetron 8 mg disintegrating 8 mg PO Q8H PRN nausea /vomiting 05/28/24 12/03/24 tablet glipizide 5 mg tablet, extended 5 mg PO QDAY 07/24/24 12/03/24 release 24 hr Previous Rx's ?Medication ?Instructions ?Recorded albuterol sulfate 90 mcg/actuation 2 puff inhalation Q 4-6H PRN 11/12/22 aerosol inhaler shortness of breath or wheez ing #8.5 grams Allergies Allergy/AdvReac Type Severity Reaction Status Date / Time nifedipine Allergy Unknown Unknown Verified 12/03/24 14:20 spironolactone Allergy Unknown Unknown Verified 12/03/24 14:20 terazosin Allergy Unknown Unknown Verified 12/03/24 14:20 Review of Systems Status of ROS: Reports: 6 or more systems reviewed and unremarkable except as noted in History and below PFSH PFS Medical History Essential hypertension ?I10 - Essential (primary) hypertension (ICD-10) H/O hyperkalemia ?Z86.39 - Personal history of other endocrine, nutritional and metabolic disease (ICD-10) 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 ?N18.30 - Chronic kidney disease, stage 3 unspecified (ICD-10) ?D63.1 - Anemia in chronic kidney disease (ICD-10) Prostate cancer ?C61 - Malignant neoplasm of prostate (ICD-10) Neuropathy ?G62.9 - Polyneuropathy, unspecified (ICD-10) Edema ?R60.9 - Edema, unspecified (ICD-10) Diabetes mellitus, without long-term current use of insulin ?E11.9 - Type 2 diabetes mellitus without complications (ICD-10) Bladder outlet obstruction ?N32.0 - Bladder-neck obstruction (ICD-10) Benign neoplasm of colon ?D12.6 - Benign neoplasm of colon, unspecified (ICD-10) Bronchospasm ?J98.01 - Acute bronchospasm (ICD-10) Decreased exercise tolerance ?R68.89 - Other general symptoms and signs (ICD-10) Cough ?R05.9 - Cough, unspecified (ICD-10) Social History Smoking Status: Former smoker Do you use any of these nicotine containing products: None Second hand tobacco smoke exposure: No Non-prescribed substance use: denies use Exam Narrative: Exam Narrative: Objective patient's elevated BMI it is he weighs 124 kilos He is slightly pale, his blood pressure is 120 but occasionally dips to the 100 range. IV fluid was started in a bolus fashion normal saline Aspirin was given 324 chewable The patient HEENT is unremarkable neck is supple chest is clear and Heart rate and rhythm regular 2/6 systolic murmur Chest is clear Diminished air exchange in the chest Abdomen obese benign nontender Extremities shows stasis chronic edema of his lower extremities Neurologic is grossly nonfocal Const: Vital Signs, click to edit/add: Vital Signs - 24 hr 12/03/24 14:23 Temperature 97.8 F Pulse Rate [Pulse Oximeter] 88 Respiratory Rate 20 Blood Pressure [Ri ght Upper Arm] 119/68 Pulse Oximetry 97 Oxygen Delivery Me thod Room Air Course Vital Signs Vital signs: Initial Vital Signs Temperature 97.8 F 12/03/24 14:23 Temperature Source Temporal Artery Scan 12/03/24 14:23 Pulse Rate 88 12/03/24 14:23 Respiratory Rate 20 12/03/24 14:23 Blood Pressure 119/68 12/03/24 14:23 Blood Pressure Mean 85 12/03/24 14:23 Pulse Oximetry 97 12/03/24 14:23 Oxygen Delivery Method Room Air 12/03/24 14:23 Vital Signs Temperature 97.8 F 12/03/24 14:23 Pulse Rate 88 12/03/24 14:23 Respiratory Rate 20 12/03/24 14:23 Blood Pressure 119/68 12/03/24 14:23 Pulse Oximetry 97 12/03/24 14:23 Oxygen Delivery Method Room Air 12/03/24 14:23 Temperature 97.8 F 12/03/24 14:23 Pulse Rate 88 12/03/24 14:23 Respiratory Rate 20 12/03/24 14:23 Blood Pressure 119/68 12/03/24 14:23 Pulse Oximetry 97 12/03/24 14:23 Oxygen Delivery Method Room Air 12/03/24 14:23 Medications Administered Medications: Generic Name Dose Route Start Last Admin Trade Name Freq PRN Reason Stop Dose Admin Sodium Chloride 500 mls @ 500 mls/hr 12/03/24 14:27 12/03/24 15:04 0.9 % Sodium Chloride 500 Ml IV 12/03/24 15:26 500 mls/hr .Q1H ONE Administration Discontinued Medications Generic Name Dose Route Start Last Admin Trade Name Freq PRN Reason Stop Dose Admin Aspirin 324 mg 12/03/24 14:59 12/03/24 15:08 Aspirin 81 Mg Tab.Chew PO 12/03/24 15:00 324 mg ONCE ONE Administration Ticagrelor 180 mg 12/03/24 14:59 12/03/24 15:06 Ticagrelor 90 Mg Tablet PO 12/03/24 15:00 180 mg ONCE ONE Administration Medical Decision Making MDM Narrative Medical decision making narrative: [age] male with episodes of hypotension this morning with EKG diagnosis of acute ST-elevation [place] anteroseptal. The patient's EKG was faxed to Dr. Gutierrez at [facility] who agrees to activate level 1 protocol. His chest x-ray looks largely unremarkable of the pacemaker being placed and noted. His troponin is markedly elevated at in the 30s. Patient will be sent to [place] via ground ambulance for level 1 acute care an angiogram and possible stenting. He was given IV heparin bolus and drip, he will be getting ticagrelor orally 180, an aspirin 324. Will hold on any nitro given his blood pressure issues. He is not currently having chest pain as mention Lab Data Labs: Lab Results 12/03/24 Range/Units 14:50 WBC 10.16 (4.50-11.00) K/uL RBC 4.90 (4.30-5.90) m/uL Hgb 14.0 (13.5-17.5) gm/dL Hct 44.2 (37.0-53.0) % MCV 90 (80-100) fL MCH 29 (26-34) pg MCHC 32 (32-36) gm/dL RDW Coeff of Blu 14.6 (11.5-15.5) % Plt Count 193 (140-440) K/uL Neut % (Auto) 76.3 H (42.0-72.0) % Lymph % (Auto) 9.4 L (20-44) % [place] % (Auto) 12.6 H (0.0-11.0) % Eos % (Auto) 0.3 (0.0-7.0) % Baso % (Auto) 0.3 (0.0-3.0) % Neut # (Auto) 7.80 H (1.7-7.0) K/uL Lymph # (Auto) 1.00 (0.90-2.90) K/uL [place] # (Auto) 1.30 H (0.00-0.90) K/UL Eos # (Auto) 0.03 (0.00-0.50) K/uL Baso # (Auto) 0.03 (0.00-0.30) K/uL Abs Immat Gran (auto) 0.11 (0.00-0.30) K/uL Imm/Tot Granulo (auto) 1.1 % Critical Care Time Critical Care Time Total Critical Care Time in Minutes: 120 Discharge Plan Discharge Clinical Impression: Acute [place] Patient Disposition: [facility] Condition: Stable Additional Instructions: Patient is being transferred to [facility] for level 1 cardiac care, angiogram, Dr. Gutierrez accepts, transfer sheets completed. Prescriptions: No Action atorvastatin 40 mg tablet 40 mg PO DAILY tamsulosin 0.4 mg capsule 0.8 mg PO DAILY albuterol sulfate 90 mcg/actuation HFA aerosol inhaler 2 puff inhalation Q4-6H PRN (Reason: shortness of breath or wheezing) Qty: 8.5 0RF furosemide 40 mg tablet 40 mg PO BID glipizide 5 mg tablet extended release 24hr 5 mg PO QDAY Jardiance 10 mg tablet 10 mg PO QAM magnesium 200 mg tablet 200 mg PO DAILY ferrous sulfate 325 mg (65 mg iron) tablet 325 mg PO DAILY ascorbate calcium (vitamin C) 500 mg tablet 500 mg PO DAILY Mounjaro 2.5 mg/0.5 mL pen injector 5 mg subcut QWEEK Rx Instructions: for 4 weeks ondansetron 8 mg tablet,disintegrating 8 mg PO Q8H PRN (Reason: nausea/vomiting) Stand Alone Forms: MyHealth Info Instructions
[2024-12-03 15:03] LABS: Slide Review Reflex No
[2024-12-03] MEDS: 0.9 % SODIUM CHLORIDE 500 ML 500 ML IV (15:04)
[2024-12-03] MEDS: TICAGRELOR 90 MG TABLET 180 MG PO (15:06)
--- OUTSIDE RECORDS SUMMARY | 2024-12-03 15:06 | XMS_ITS | Data Portability ---
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 Plan of Treatment Reminders Order Date Submit Date Provider Last Modified By Organization Details Last Modified Time Details Appointments None recorded. Lab urinalysis , dipstick 2024 025 ssamb [facility], [address], [place], [address], 5 10:21:44 PSA, serum or plasma 2024 025 ssamb [facility], [address], [place], [address], 5 10:30:18 culture, urine 2024 025 [facility], [address], [address], [place], [address], 5 11:51:37 PSA, serum or plasma 2022 023 [facility], [address], [place], [address], 3 15:29:43 PSA, total, serum or plasma 2022 023 [email or web address] 30 [facility], [address], [place], [address], 3 08:55:11 PSA, serum or plasma 2022 023 [facility], [address], [place], [address], 3 12:35:22 PSA, total, serum or plasma 2022 023 [email or web address] 30 [facility], [address], [place], [address], 3 14:00:46 Referral None recorded. Procedures None [...] Not Available [facility] [address], [place], [address], 07/26/2022 12:35:06 05/16/20 23 05/16/2023 PSA, serum or plasm a PSA 2.3ng/ ml 0-4.0 Not Available [facility] [address], [place], [address], 05/16/2023 15:29:24 10/09/19 25 10/08/2024 URINE CULTU [...] for provi rocio revie w. Not Available [facility] [address], [place], [address], 10/09/2024 11:51:37 10/09/19 25 10/08/2024 PSA, serum or plasm a PSA <0.04 ng/ml 0-4.0 NG/mL Not Available [facility] [address], [place], [address], 10/08/2024 10:17:31 10/09/19 25 10/08/2024 urina lysis , dipst ick BLOOD Large (250 RBC/uL ) Not Available [facility] [address], [place], [address], 10/08/2024 10:17:53 10/09/19 25 10/08/2024 urina lysis , dipst ick BILIRUBIN Negati ve Not Available [facility] [address], [place], [address], 10/08/2024 10:17:53 10/09/19 25 10/08/2024 urina lysis , dipst ick UROBILINOGEN 0.2 mg/dL (Norm) Not Available [facility] [address], [place], [address], 10/08/2024 10:17:53 10/09/19 25 10/08/2024 urina lysis , dipst ick KETONES Negati ve Not Available [facility] [address], [place], [address], 10/08/2024 10:17:53 10/09/19 25 10/08/2024 urina lysis , dipst ick PROTEIN 30 mg/dL Not Available [facility] [address], [place], [address], 10/08/2024 10:17:53 10/09/19 25 10/08/2024 urina lysis , dipst ick NITRITES Negati ve Not Available [facility] [address], [place], [address], 10/08/2024 10:17:53 10/09/19 25 10/08/2024 urina lysis , dipst ick GLUCOSE >2000 mg/dL Not Available [facility] [address], [place], [address], 10/08/2024 10:17:53 10/09/19 25 10/08/2024 urina lysis , dipst ick LEUKOCYTES Large (500 WBC/uL ) Not Available [facility] [address], [place], [address], 10/08/2024 10:17:53 07/27/19 23 07/26/2022 bladd er scan (PROC ) No observ ation record ed. BARCODE Not Available 2022 09:41:35 07/05/20 23 07/04/2023 PET-C T, skull base to mid-t high scan No observ ation record ed. Not Available 2023 11:45:47 10/14/19 25 10/13/2024 CT, abdom en + pelvi s, w/o contr ast No observ ation record ed. O'BRIEN [facility] [address], [place], [address], 10/13/2024 14:41:22 Result Notes None recorded. Problems Name Problem SNOMED Code Status Onset Date Resolution Date Notes Provider Name and Address Organization Details Recorded Time Malignant neoplasm of prostate 940967252 Active 2019 C61 : Malignant neoplasm of prostate - Notes:Pros sellers cancer - T1c - [place] 4+3 = 7 (dx )- PSA - 15.30 Not Available [facility] 0 02:05:22 Problem Notes None recorded. Procedures Surgical History Date Name Laterality Status Provider Name and Address Organization Details Recorded Time 5 Bladder Scan completed Armani Luu [facility] 10/08/2024 10:17:19 5 Blood Draw/FISH TECHNOLOGIST/PSA RESULTS completed Armani Luu [facility] 10/08/2024 10:17:25 3 FISH TECHNOLOGIST/blood draw completed Madi Oakley MD [address] [place] [address], [address] [place] [address], [facility] 05/16/2023 15:29:17 3 FISH TECHNOLOGIST/blood draw completed Madi Oakley MD [address] [place] [address], [address] [place] [address], [facility] 07/26/2022 12:34:55 3 Bladder Scan completed Madi Oakley MD [address] [place] [address], [address] [place] [address], [facility] 07/26/2022 12:35:00 Imaging Results None recorded. Procedure Notes None recorded. Medical Equipment None Reported. Allergies Allergen ID Allergen Name Allergen Category Reaction Reaction Severity Criticality Documentation Date Start Date Code Code System Note Provider Name and Address Organization Details Recorded Time 869711 nifedipin e medicatio n Not available Not available Not available 12/25/20192019 7417 RxNorm Not Available [facility] 0 00:46:56 716424 spironola ctone medicatio n Not available Not available Not available 12/25/20192019 9997 RxNorm Not Available [facility] 0 00:46:56 Medications Name Sig Start Date [...] Address Organization Details Last Updated DateTime 07/26/2022 315682.6 g 41.3 kg/m2 177.8 cm Madi Oakley MD [address] [place] [address],[address] [place] [address] [facility] 07/26/2022 12:32:49 Date Recorded Body height Body mass index (BMI) Body weight Provider Name and Address Organization Details Last Updated DateTime 10/08/2024 177.8 cm 39.9 kg/m2 536167.68 g Armani Luu [facility] 10/08/2024 10:16:10 Date Recorded Body height Body mass index (BMI) Body weight Provider Name and Address Organization Details Last Updated DateTime 05/16/2023 177.8 cm 43 kg/m2 298384.71 g Madi Oakley MD [address] [place] [address],[address] [facility] 05/16/2023 15:28:14 Social History Question Answer Notes LastModified by [employer] ion Details LastModified Time Tobacco Smoking Status Former Smoker Madi Oakley MD [address] [place] [address] [facility] 07/26/2022 12:33:48 What Is Your Level Of Caffeine Consumption? Moderate Information not available 07/26/2022 When Did You Quit Smoking? 16+yearssincel astcigarette Information not available 07/26/2022 What Was The Date Of Your Most Recent Tobacco Screening? 10/08/2024 ssamb Information not available 10/08/2024 Sex: Unknown Functional Status Question Answer Note LastModified by [employer] Details LastModified Time Do you use any [...] Details Recorded Time Pneumococcal conjugate PCV20, polysaccharide RUP422 conjugate, adjuvant, PF 4 completed Not Available [facility] 10/08/2024 10:02:42 Influenza, high-dose, trivalent, PF 4 completed Not Available [facility] 10/08/2024 10:02:42 COVID-19, mRNA, LNP-S, PF, 50 mcg/0.5 mL 4 completed Not Available [facility] 10/08/2024 10:02:42 Pneumococcal conjugate PCV 13 4 completed Madi Oakley MD [address] [place] [address],[address], [place], [address], [facility] 07/26/2022 12:33:03 pneumococcal polysaccharide PPV23 1 completed Madi Oakley MD [address] [place] [address],[address], [place], [address], [facility] 07/26/2022 12:33:03 pneumococcal polysaccharide PPV23 7 completed Madi Oakley MD [address] [place] [address],[facility] [address], [place], [address], [facility] 07/26/2022 12:33:03 Influenza, adjuvanted, trivalent, PF 9 completed Madi Oakley MD [address] [place] [address],[address], [place], [address], [facility] 05/16/2023 15:28:18 zoster recombinant 9 completed Madi Oakley MD [address] [place] [address],[address], [place], [address], [facility] 05/16/2023 15:28:19 zoster recombinant 9 completed Madi Oaklye MD [address] [place] [address],[address], [place], [address], [facility] 05/16/2023 15:28:19 Influenza, high-dose, quadrivalent, PF 2 completed Madi Oakley MD [address] [place] [address],[address], [address], [facility] 05/16/2023 15:28:19 Influenza, adjuvanted, quadrivalent, PF 3 completed Madi Oakley MD [address] [place] [address],[address], [place], [address], [facility] 05/16/2023 15:28:19 Influenza, adjuvanted, quadrivalent, PF 0 completed Madi Oakley MD [address] [place] [address],[address], [place], [address], [facility] 05/16/2023 15:28:19 Influenza, adjuvanted, quadrivalent, PF 1 completed Madi Oakley MD [address] [place] [address],[facility] [address], [address], [facility] 05/16/2023 15:28:19 COVID-19, mRNA, LNP-S, PF, 30 mcg/0.3 mL dose 1 completed Madi Oakley MD [address] [place] [address],[address], [address], [facility] 05/16/2023 15:28:19 COVID-19, mRNA, LNP-S, PF, 30 mcg/0.3 mL dose 1 completed Madi Oakley MD [address] [place] [address],[address], [place], [address], [facility] 05/16/2023 15:28:19 COVID-19, mRNA, LNP-S, PF, 30 mcg/0.3 mL dose 1 completed Madi Oakley MD [address] [place] [address],[address], [place], [address], [facility] 05/16/2023 15:28:19 COVID-19, mRNA, LNP-S, PF, 30 mcg/0.3 mL dose, daniel-sucrose 2 completed Madi Oakley MD [address] [place] [address],[address], [place], [address], [facility] 05/16/2023 15:28:19 COVID-19, mRNA, LNP-S, bivalent, PF, 50 mcg/0.5 mL or 25mcg/0.25 mL dose 3 completed Madi Oakley MD [address] [place] [address],[address], [place], [address], [facility] 05/16/2023 15:28:19 COVID-19, mRNA, LNP-S, bivalent, PF, 30 mcg/0.3 mL dose 2 completed Madi Oakley MD [address] [place] [address],[address], [place], [address], [facility] 05/16/2023 15:28:19 RSV, bivalent, protein subunit RSVpreF, diluent reconstituted, 0.5 mL, PF 3 completed Madi Oakley MD [address] [place] [address],[address], [place], [address], [facility] 05/16/2023 15:28:19 Tdap 1 completed Madi Oakley MD [address] [place] [address],[address], [place], [address], [facility] 05/16/2023 15:28:19 zoster live 7 completed Madi Oakley MD [address] [place] [address],[address], [address], [facility] 05/16/2023 15:28:19 Influenza, high-dose, trivalent, PF 4 completed Madi Oakley MD [address] [place] [address],[address], [place], [address], [facility] 05/16/2023 15:28:19 Influenza, high-dose, trivalent, PF 7 completed Madi Oakley MD [address] [place] [address],[address], [place], [address], [facility] 05/16/2023 15:28:19 Influenza, high-dose, trivalent, PF 8 completed Madi Oakley MD [address] [place] [address],[address], [place], [address], [facility] 05/16/2023 15:28:19 Influenza, high-dose, trivalent, PF 2 completed Madi Oakley MD [address] [place] [address],[address], [place], [address], [facility] 05/16/2023 15:28:19 Influenza, high-dose, trivalent, PF 6 completed Madi Oakley MD [address] [place] [address],[address], [place], [address], [facility] 05/16/2023 15:28:19 Influenza, split virus, trivalent, preservative 7 completed Madi Oakley MD [address] [place] [address],[address], [place], [address], [facility] 05/16/2023 15:28:19 Influenza, split virus, trivalent, preservative 0 completed Madi Oakley MD [address] [place] [address],[address], [place], [address], [facility] 05/16/2023 15:28:19 Influenza, split virus, trivalent, preservative 3 completed Madi Oakley MD [address] [place] [address],[address], [address], [facility] 05/16/2023 15:28:19 Influenza, split virus, trivalent, preservative 8 completed Madi Oakley MD [address] [place] [address],[address], [address], [facility] 05/16/2023 15:28:19 Influenza, split virus, trivalent, PF 1 completed Madi Oakley MD [address] [place] [address],[address], [address], [facility] 05/16/2023 15:28:19 Novel [id number] 9 completed Madi Oakley MD [address] [place] [address],[address], [address], [facility] 05/16/2023 15:28:19 Td (adult), 5 Lf tetanus toxoid, preservative free, adsorbed 6 completed Madi Oakley MD [address] [place] [address],[address], [address], [facility] 05/16/2023 15:28:19 Influenza, split virus, quadrivalent, PF 5 completed Madi Oakley MD [address] [place] [address],[address], [address], [facility] 05/16/2023 15:28:19 Past Encounters Encounter ID Performer Location Encounter Start Date Encounter Closed Date Diagnosis/Indication Diagnosis SNOMED-CT Code Diagnosis ICD10 Code Diagnosis Note [id number] Madi Oakley MD [address] [place] [address] 07/26/2022 12:19:34 08/02/2022 16:33:21 Hydronephrosis 66269793 N13.30 2. Hydronephr osis, left- retrograde pyelogram (06/21/20) revealed obstructio n at Left UVJ- s/p dilation of Left UVJ (06/21/20) - renal function is stable- monitor Creatinine - if renal function worsens - consider Left percutaneo us nephrostom y tube placement with antegrade stent placement Carcinoma of prostate 25 0168203 C61 1. Prostate cancer (HC)- T1c - [place] 4+3 = 7 - s/p EBRT (03/18/20) and Hormonal therapy (October - )- PSA (0.31) - remains low- Follow-up in 9 months with PSA and Bladder scan Lower urin kenyatta tract symptoms due to benign prostatic hypertrophy 2299028677 9101 N40.1 3. BPH- incomplete bladder emptying (PVR = 179 mL)- continue Flomax 0.8 mg daily- monitor PVRs with Bladder scan(if PVR is high (> 400 mL) - recommend self-cath 5-6x/day)( consider adding Cialis 5 mg daily) Urinary incontinence 165 839920 R32 4. Urinary incontinen ce- uses Depends- can try Condom catheter (medium or intermitte nt size) [id number] [facility] [address] [place] [address] FrankieeGeorge S [place] [address] 05/16/2023 15:01:42 05/28/2023 14:58:00 Carcinoma of prostate [id number] C61 1. Prostate cancer (HC)- T1c - [place] 4+3 = 7 - s/p EBRT (03/18/20) and Hormonal therapy (October - months)- PSA (2.3) - increased (concernin g for cancer growth)- recheck PSA in 1-2 months (in [place] )- if PSA increases - recommend restarting Hormonal therapy or checking PSMA PET scan to assess for recurrence Hydronephrosis 38751122 N13.30 2. Hydronephr osis, left- retrograde pyelogram (06/21/20) revealed obstructio n at Left UVJ- s/p dilation of Left UVJ (06/21/20) - renal function is stable- monitor Creatinine - if renal function worsens - consider Left percutaneo us nephrostom y tube placement with antegrade stent placement Lower urin kenyatta tract symptoms due to benign prostatic hypertrophy 6787721960 9101 N40.1 3. BPH- incomplete bladder emptying (PVR = 179 mL)- continue Flomax 0.8 mg daily- monitor PVRs- check Bladder scan at Follow-up( if PVR is high (> 400 mL) - recommend self-cath 5-6x/day)( consider adding Cialis 5 mg daily) Urinary incontinence 165 771336 R32 4. Urinary incontinen ce- uses Depends- can try Condom catheter (medium or intermitte nt size) [id number] Madi Oakley MD [facility] [address] [facility] [address] [facility] [place] [address] 10/08/2024 09:58:18 10/13/2024 10:36:17 Carcinoma of prostate [id number] C61 1. Prostate cancer (HC)- T1c - [place] 4+3 = 7 - s/p EBRT (03/18/20) and Hormonal therapy (October - 6 months)- + PSMA PET (Jul 2023) - + pelvic lymph nodes- s/p ADT (Firmagon 08/03/23) - currently in monthly Lupron - plan 2 year course- s/p IMRT to pelvic nodes - (completed September 2023)- PSA (< 0.04)- Follows with Oncology in [place] - scheduled for PSA check every 3 months in Hydronephrosis 87295094 N13.30 H/O Hydronephr osis, left- retrograde pyelogram (06/21/20) revealed obstructio n at Left UVJ- s/p dilation of Left UVJ (06/21/20) - renal function is stable- monitor Creatinine - if renal function worsens - consider Left percutaneo us nephrostom y tube placement with antegrade stent placement Lower urin kenyatta tract symptoms due to benign prostatic hypertrophy [id number] 9101 N40.1 2. BPH- bladder emptied well [...] Member ID Guarantor Name 10/08/2024 1 [place] - MEDICARE COST [id number] Clark Barrios [id number] Clark Barrios Notes Date Note Type Note Provider Name and Address Organization Details Recorded Time 07/26/2022 text/html 82 yo male with prostate cancer (T1c - [place] 4+3 = 7) - s/p EBRT (03/18/20) [...] 0.8 mg daily.Prostate cancer - T1c - [place] 4+3 = 7Trus bx (10/01/19) - 39.7 gm- Left - [place] 4+3 = 7 - involving 6/6 cores [...] bladder emptied well Madi Oakley MD [address] [facility],[address], [place], [address], [place] - [facility] 07/26/2022 13:04:29 05/16/2023 text/html 83 yo male with prostate cancer (T1c - [place] 4+3 = 7) - s/p EBRT (03/18/20) [...] 0.8 mg daily.Prostate cancer - T1c - [place] 4+3 = 7- s/p EBRT - (03/18/20)- [...] kidney.- bladder emptied well Madi Oakley MD [address] [facility],[address], [place], [address], [place] - [facility] 05/17/2023 22:38:50 10/08/2024 text/html 84 yo [...] 0.8 mg daily.Prostate cancer - T1c - [place] 4+3 = 7- s/p EBRT - (03/18/20)- [...] bladder emptied well Madi Oakley MD [address] [facility],[address], [place], [address], [facility] 10/08/2024 14:12:47
[2024-12-03] MEDS: ASPIRIN 81 MG TAB.CHEW 324 MG PO (15:08)
[2024-12-03] MEDS: HEPARIN 25,000 UNIT/500 ML BAG 20 UNIT IV (15:15)
[2024-12-03 15:17] LABS: Chloride* 92 mmol/L (96-114)
[2024-12-03 15:18] LABS: Potassium* 3.7 mmol/L (3.6-5.1); Sodium* 132 mmol/L (135-149)
[2024-12-03] MEDS: HEPARIN 5,000 UNIT/0.5 ML INJ 4000 UNIT IVP (15:19)
[2024-12-03 15:20] LABS: Alanine Aminotransferase* 60 U/L (4-50); Anion Gap 8 mEq/L (7-15); Aspartate Amino Transferase* 125 U/L (12-35); Blood Urea Nitrogen* 35 mg/dL (7-30); Carbon Dioxide* 32 mmol/L (20-32); Creatinine* 1.7 mg/dL (0.5-1.5); Estimated Glomerular Filt Rate 40 ml/min; Lactate* 2.1 mmol/L (0.5-1.9); Total Protein* 6.9 g/dL (6.0-8.3)
[2024-12-03 15:21] LABS: Alkaline Phosphatase* 84 U/L (40-150); Bilirubin Direct* 0.2 mg/dL (0.0-0.5); Bilirubin Total* 1.2 mg/dL (0.1-1.5); Calcium* 9.3 mg/dL (8.4-10.6); Glucose* 161 mg/dL (60-115)
[2024-12-03 15:31] LABS: NT Pro B Type NatriureticPept* 19500 pg/mL (See Note)
== END 2024-12-03 16:01 | disposition short-term general hospital (02) ==
PROVIDERS: Emergency Provider Family Medicine; PCP Family Medicine
DX: I21.9 Acute myocardial infarction, unspecified (principal); E11.9 Type 2 diabetes mellitus without complications; R60.9 Edema, unspecified; R05.3 Chronic cough; Z87.891 Personal history of nicotine dependence
CPT/HCPCS: 36415; 71045; 80048; 80076; 81001; 83605; 83880; 84484; 85025; 87040; 87086; 93005; 94761; 99285; 99291; 99292; A9270; J1644; J7030

== ENCOUNTER 2024-12-03 15:31 | Outpatient (CLI) | payer MEDICARE, BC, SELFPAY | END 2024-12-03 15:32 | disposition home or self-care (01) | PROVIDERS: PCP Family Medicine; Visit Provider Family Medicine | DX: I21.9 Acute myocardial infarction, unspecified (principal); Z95.0 Presence of cardiac pacemaker | CPT/HCPCS: A0425; A0434 ==